=== PATIENT | male | born 1955 | race Caucasian/White ===

== ENCOUNTER 2017-01-13 19:30 | Outpatient (CLI) | payer MEDICARE | END 2017-01-13 19:31 | disposition home or self-care (01) | LOC: SLEEPLAB 19:30 | PROVIDERS: ATTEND Internal Medicine Critical Care Medicine | DX: G47.33 Obstructive sleep apnea (adult) (pediatric) (principal); E66.9 Obesity, unspecified | CPT/HCPCS: 95811 ==

== ENCOUNTER 2017-02-25 19:30 | Outpatient (CLI) | payer MEDICARE | END 2017-02-25 19:31 | disposition home or self-care (01) | LOC: SLEEPLAB 19:30 | PROVIDERS: ATTEND Internal Medicine Critical Care Medicine | DX: G47.33 Obstructive sleep apnea (adult) (pediatric) (principal); R53.83 Other fatigue; R06.81 Apnea, not elsewhere classified; R09.89 Other specified symptoms and signs involving the circulatory and respiratory systems; E66.9 Obesity, unspecified | CPT/HCPCS: 95811 ==

== ENCOUNTER 2017-10-19 17:57 | Inpatient (IN) | payer MEDICARE ==
[2017-10-19] MEDS ORDERED: Ondansetron ODT 4 MG TAB ONE (18:57)
[2017-10-19] MEDS ORDERED: HYDROcodone/Acetaminophen 5/325 mg Tablet PO PRN ×2 (23:10)
[2017-10-19] MEDS ORDERED: Acetaminophen 325 MG TAB PO PRN (23:10)
[2017-10-19] MEDS ORDERED: Ondansetron HCl/PF 4 MG/2 ML Vial IVP PRN (23:10)
[2017-10-19] MEDS ORDERED: Ondansetron ODT 4 MG TAB SL PRN (23:10)
[2017-10-19 23:20] VITALS: BMI 42.3
[2017-10-20] MEDS ORDERED: Insulin Regular 300 UNITS/3 ML VIAL SC PRN ×2 (04:16)
[2017-10-20] MEDS ORDERED: Dextrose 50% Abboject 50 ML SYRINGE SLOW IVP PRN (04:16)
[2017-10-20] MEDS ORDERED: Dextrose 5% in Water 1,000 ML IV PRN (04:16)
[2017-10-20] MEDS ORDERED: traMADol HCl 50 MG TAB PO PRN (04:18)
[2017-10-20] MEDS ORDERED: Lorazepam 1 MG TAB PO PRN (04:18)
[2017-10-20] MEDS ORDERED: Calcium Carbonate 500 MG ChewTAB PO PRN (04:18)
[2017-10-20] MEDS ORDERED: Nitroglycerin 0.4 MG TAB (25 Tab Bottle) SL PRN (04:18)
[2017-10-20] MEDS ORDERED: Benzonatate 100 MG CAP PO PRN (04:18)
[2017-10-20] MEDS ORDERED: Ondansetron HCl/PF 4 MG/2 ML Vial IVP PRN (04:18)
[2017-10-20] MEDS ORDERED: hydrALAZINE 20 MG/ML VIAL SLOW IVP PRN (04:18)
[2017-10-20] MEDS ORDERED: Senokot 8.6 MG TAB PO PRN (04:18)
[2017-10-20] MEDS ORDERED: Diabetic Tussin 200 MG/10 ML UDCUP PO PRN (04:18)
[2017-10-20] MEDS ORDERED: cloNIDine 0.1 MG TAB PO PRN (04:18)
[2017-10-20] MEDS ORDERED: Acetaminophen 325 MG TAB PO PRN (04:18)
[2017-10-20] MEDS ORDERED: Loratadine 10 MG TAB PO PRN (04:18)
[2017-10-20] MEDS ORDERED: Mag-Al 1200 mg/1200 mg/30 ML UDCUP PO PRN (04:18)
--- NOTE | 2017-10-20 05:54 | HP ---
DATE OF ADMISSION: 10/20/2017 PRIMARY CARE PHYSICIAN: Dr. Lul Martínez. PRIMARY COMMERCIAL OR INSTITUTIONAL CLEANER: Dr. Mai. PRIMARY MACHINE ADJUSTER LEADER: Dr. Tomas. CHIEF COMPLAINT: Shortness of breath. HISTORY OF PRESENTING ILLNESS: Mr. Pedro is a very pleasant 61-year-old male with past medical hist ory of diabetes mellitus, type 2; dyslipidemia; hypertension; and chronic kidney disease as well as c ongestive heart failure; who presented to the emergency room with the above-mentioned complaint. His tory is mainly obtained by the patient himself and electronic medical records have been reviewed. The patient had a last echocardiogram done in 11/2014, which showed ejection fraction of 50% to 55% a nd diastolic dysfunction. Mr. Pedro reports that he has been compliant with his medication of torsemide, but lately he has bee n having worsening shortness of breath for 5 days as well as worsening pitting pedal edema. He is ve ry worried about his kidney failure with the diuresis and he states that he is trying very hard that he does not end up on dialysis. Dr. Tomas is monitoring his kidney functions closely. He initially p resented to the [facility] where he was found to have elevated BNP and chest x-ray c onsistent with moderate congestive heart failure. He was given 60 mg of Lasix in the ER and was poon sferred to our facility for further evaluation. He is now being admitted for same. PAST MEDICAL HISTORY: 1. Chronic diastolic congestive heart failure. 2. History of chronic kidney disease, stage 4. 3. Coronary artery disease, status post CABG in the past. 4. Morbid obesity. 5. Hypertension. 6. Dyslipidemia. 7. Iron deficiency anemia. 8. Cardiorenal syndrome. PAST SURGICAL HISTORY: 1. Coronary artery bypass graft in 05/2012. 2. Laser lithotripsy as well as cystoscopy [place] [address] Ibarra. 3. Tonsillectomy. ALLERGIES: METFORMIN. SOCIAL HISTORY: and lives at home with his . He is a former smoker. Denies any current use of tobacco, alcohol, or drugs. FAMILY HISTORY: Mother with coronary artery disease. HOME MEDICATIONS: As follows: Allopurinol 100 mg p.o. b.i.d., amlodipine 10 mg daily, Coreg 6.25 mg p.o. b.i.d., atorvastatin 40 mg daily, aspirin 325 mg daily, famotidine 20 mg daily, cholecalciferol 50 mcg daily, insulin aspart 40 units t.i.d. and insulin glargine 75 b.i.d., torsemide 100 mg daily. REVIEW OF SYSTEMS: The following complete review of systems was negative, unless otherwise mentioned in the HPI or below: Constitutional: Weight loss or gain, ability to conduct usual activities. Sk in: Rash, itching. Eyes: Double vision, pain. ENT/Mouth: Nose bleeding, neck stiffness, pain, te nderness. Cardiovascular: Palpitations, dyspnea on exertion, orthopnea. Respiratory: Shortness of breath, wheezing, cough, hemoptysis, fever or night sweats. Gastrointestinal: Poor appetite, abdom inal pain, heartburn, nausea, vomiting, constipation, or diarrhea. Genitourinary: Urgency, frequenc y, dysuria, nocturia. Musculoskeletal: Pain, swelling. Neurologic/Psychiatric: Anxiety, depressio n. Allergy/Immunologic: Skin rash, bleeding tendency. A 12-point review of systems is done. It is negative except for those mentioned in the history and physical. LABORATORY DATA AND IMAGING: CBC shows hemoglobin of 8.3, which is slightly lower than his baseline of around 10, platelet count of 119. Serum chemistry shows sodium of 135, bicarbonate of 17, BUN 93, creatinine 3.96 with estimated GFR of 15. Blood sugar is 207, alkaline phosphatase is elevated at 3 37. BNP of 448. Chest x-ray by my review shows pulmonary vascular congestion. A 12-lead EKG showed some sinus bradyc ardia at 55 beats per minute with some nonspecific T changes in lead III. PHYSICAL EXAMINATION: VITAL SIGNS: Most recent vital signs, temperature 98.3, pulse of 62, respirations 20, saturating 96% on 3 liters nasal cannula, blood pressure 145/66. GENERAL: No acute distress. He gets easily winded with conversation; however. He is awake, alert, oriented x3. HEENT: Mucous membrane is moist and pink. No oropharyngeal exudate or erythema. Head is normocepha lic, atraumatic. Pupils are equal, reactive to light and accommodation. Extraocular movement intact . NECK: Supple without any lymphadenopathy, JVD or bruit. CHEST: Evaluation showed bibasilar crackles without any significant wheezes. CARDIOVASCULAR: Rate and rhythm is regular without any murmur, rubs or gallops. ABDOMEN: Obese, soft, nontender, nondistended with positive bowel sounds. EXTREMITIES: Showed +1 pitting edema bilaterally. NEUROLOGIC: Nonfocal. SKIN: Free of any rashes or bruises. Feel warm and dry to touch. PSYCHIATRIC: Normal affect. IMPRESSION AND PLAN: 1. Acute on chronic diastolic congestive heart failure exacerbation. The patient will be gently diu resed with Lasix b.i.d. with close monitoring of his renal function. We will obtain a new echocardio gram and consult his mica plate layer hand, Dr. Mai in the morning. He will be on a fluid restricted diet and we will monitor strict I's and O's and daily weights. We will also refer him to Heart Failure Cl in prior to discharge. 2. Acute on chronic kidney disease, likely secondary to cardiorenal syndrome. We will consult Nephr ology and monitor renal function closely. Avoid any nephrotoxic medication. 3. History of coronary artery disease, status post coronary artery bypass graft. At this time, we w ill continue his aspirin, statin, and beta blockers. He is not on any SAEED inhibitor at this time due to renal insufficiency. 4. Chronic iron deficiency anemia. The patient has had workup done as an outpatient. 5. Chronic thrombocytopenia. 6. Dyslipidemia. We will continue statin. 7. Hypertension, currently controlled. Resume home medications as above. 8. Code status: FULL CODE. Discussed with the patient. 9. Add deep venous thrombosis and gastrointestinal prophylaxis. 10. Add p.r.n. medication orders. DISPOSITION: Mr. Pedro is currently being admitted to the hospital with acute congestive heart fail ure. Estimated length of stay at this time is at least 2-3 midnights. Further management will depen d upon his clinical course.
[2017-10-20] MEDS ORDERED: Furosemide 40 MG/4 ML VIAL SLOW IVP SCH (06:00)
[2017-10-20] MEDS: Atorvastatin Calcium 40 MG TAB PO SCH (08:24)
[2017-10-20] MEDS: Insulin Glargine 75 UNITS in Pre-Filled Syringe 1 EACH SC SCH ×2 (08:24→20:43)
[2017-10-20] MEDS: Carvedilol 6.25 MG TAB PO SCH ×2 (08:24→16:03)
[2017-10-20] MEDS: Allopurinol 100 MG TAB PO SCH ×2 (08:24→20:42)
[2017-10-20] MEDS: Aspirin 325 mg Enteric Coated Tablet PO SCH (08:24)
[2017-10-20] MEDS: Famotidine 20 MG TAB PO SCH (08:24)
[2017-10-20] MEDS: HumaLOG 300 UNITS/3 ML VIAL SC SCH ×3 (08:25→20:43)
[2017-10-20] MEDS: Heparin 5,000 UNITS/ML VIAL SC SCH ×2 (08:25→20:43)
[2017-10-20] MEDS ORDERED: Amlodipine 10 MG TAB PO SCH (09:00)
[2017-10-20] MEDS ORDERED: Non-Formulary Item 1 EACH (Insulin Glargine,Hum.Rec.Anlog [Lantus Solostar] 75 UNIT) SQ SCH (09:00)
--- NOTE | 2017-10-20 09:48 | CON ---
DATE OF CONSULTATION: 10/20/2017 REASON FOR CONSULTATION: Congestive heart failure, coronary artery disease, previous bypass surgery. Mr. Pedro is a 61-year-old gentleman. He has been noticing increasing difficulty breathing and increasing fluid retention for the last 2 weeks. Finally it became so bad that he had trouble breathing even at rest and he has been hospitalized for that. He was seen in the emergency room, given 60 mg of Lasix. He said he has only had a modest output from the furosemide. He has not had chest pain or pressure. PAST MEDICAL HISTORY: 1. History of chronic kidney disease stage 4, very close to dialysis levels. 2. Coronary artery disease, previous bypass surgery. 3. Morbid obesity. 4. Hypertension. 5. Dyslipidemia. 6. History of iron-deficiency anemia. 7. Chronic heart failure initially systolic, but later, the ejection fraction improved, but later a follow up ejection fraction showed improvement in the ejection fraction 50%, but that was in 2014. I do not see any repeat since then. 8. Insulin dependent diabetes. PAST SURGICAL HISTORY: 1. He had bypass surgery in 2012. 2. Tonsillectomy. ALLERGIES: METFORMIN. SOCIAL HISTORY: , lives at home with his , former smoker, No current alcohol or drugs. FAMILY HISTORY: Mother with coronary disease. HOME MEDICATIONS: 1. Allopurinol. 2. Amlodipine 10 mg a day. 3. Coreg. He tells me he was taking 25 mg twice a day. The charts says 6.25. That will need to be checked. 4. Atorvastatin 40 mg daily. 5. Aspirin 325 mg a day. 6. Pepcid. 7. Insulin. REVIEW OF SYSTEMS: CONSTITUTIONAL: Positive for weakness, fatigue, and shortness of breath. VISION: No changes. HEARING: No changes. PULMONARY: Positive for shortness of breath. CARDIAC: No chest pain or pressure. Positive for shortness of breath and swelling of the lower extremities. GASTROINTESTINAL: No nausea, vomiting or diarrhea. SKIN: No rashes. NEUROLOGIC: No unusual unilateral weakness or numbness. PSYCHIATRIC: No unusual depression or anxiety. MUSCULOSKELETAL: No unusual joint pains. PHYSICAL EXAMINATION: GENERAL: This is a very pleasant 61-year-old man who is on oxygen. He says he is comfortable lying in bed up at about a 15 to 20 degree angle. VITAL SIGNS: His blood pressure 151/64, pulse 58 regular. EYES: Sclerae nonicteric. Mouth mucous membranes moist. NECK: Supple, no lymphadenopathy. LUNGS: Clear, no wheezing, rales or rhonchi. CARDIOVASCULAR: Distant, but no murmur, rub or gallop. ABDOMEN: Obese, nontender, no hepatosplenomegaly. EXTREMITIES: Warm, dry, no clubbing or cyanosis. There is moderate to severe edema. PERTINENT LABORATORY AND X-RAY FINDINGS: His hemoglobin is 8.3. The creatinine 3.96. Most recent cholesterol level 105. LDL is 57. EKG showed sinus bradycardia, heart rate of 55. No acute changes. Also, Reviewing the other medicine list, it is also listed as hydralazine 100 mg tablet 10 mg twice a day, that is not a consistent record of the medicine, we will need to clarify that with him. Yet another medicine list indicates that he was taking torsemide 100 mg a day, that seems to be accurate. ASSESSMENT: 1. Previous coronary artery bypass grafting. 2. Previously systolic congestive heart failure. Subsequently, had diastolic heart failure. This will need to be clarified, may has systolic CHF now. He has cardiac enlargement on his x-ray. 3. History of hypertension. 4. Stage 4 renal failure, very close to dialysis levels. 5. History of iron deficiency anemia, currently anemic. 6. Diabetes. 7. Morbid obesity, BMI is 42. PLAN: 1. Continue intravenous diuretics. He did not respond much to the 40 mg of Lasix IV increased to 60. 2. Reduce carvedilol dose to allow greater perfusion. 3. Stop amlodipine. 4. We will likely need to resume hydralazine based on blood pressure response. Would like him to have a relatively high blood pressure for now at least in the next day or 2 to try to perfuse his kidneys to diurese. 5. Echocardiogram; may need a defibrillator implantation. 6. I will be glad to follow with you. 7. Also check iron levels. MTDD
--- NOTE | 2017-10-20 10:51 | CON ---
DATE OF CONSULTATION: 10/20/2017 REFERRING PHYSICIAN: Dr. Hurley REASON FOR CONSULTATION: Acute kidney injury. REASON FOR ADMISSION: Shortness of breath and congestive heart failure. HISTORY OF PRESENT ILLNESS: A 61-year-old male with a history of congestive heart failure, chronic kidney disease stage 4, coronary artery disease, hypertension, came to the hospital with shortness of breath and has been treated for CHF exacerbation. He was found to have elevated creatinine. His creatinine was found to be 3.96. His baseline creatinine runs around 2.8-3.4. The patient states that the last few days he started having a lot of swelling and shortness of breath and has been fighting with it. He denies any changes in his diet pattern. He was also evaluated by Cardiology. No history of any nausea, vomiting, no fevers, chills, no chest pain. PAST MEDICAL HISTORY: Positive for congestive heart failure, chronic kidney disease, coronary artery disease, morbid obesity, hypertension, hyperlipidemia. PAST SURGICAL HISTORY: Coronary artery bypass graft, laser lithotripsy, tonsillectomy. HOME MEDICATIONS: Allopurinol, amlodipine, Coreg, atorvastatin, aspirin, famotidine, folic acid, insulin, torsemide. ALLERGIES: METFORMIN. SOCIAL HISTORY: Former smoker. No alcohol or drug abuse. FAMILY HISTORY: No history of kidney disease. REVIEW OF SYSTEMS: The following complete review of systems was negative, unless otherwise mentioned in the HPI or below: Constitutional: Weight loss or gain, ability to conduct usual activities. Skin: Rash, itching. Eyes: Double vision, pain. ENT/Mouth: Nose bleeding, neck stiffness, pain, tenderness. Cardiovascular: Palpitations, dyspnea on exertion, orthopnea. Respiratory: Shortness of breath, wheezing, cough, hemoptysis, fever or night sweats. Gastrointestinal: Poor appetite, abdominal pain, heartburn, nausea, vomiting, constipation, or diarrhea. Genitourinary: Urgency, frequency, dysuria, nocturia. Musculoskeletal: Pain, swelling. Neurologic/Psychiatric: Anxiety, depression. Allergy/Immunologic: Skin rash, bleeding tendency. PHYSICAL EXAMINATION: GENERAL: This is an obese male in no apparent distress. VITAL SIGNS: Temperature 98.4, pulse 50, respiratory 16, blood pressure 151/64. HEENT: Atraumatic, normocephalic. Oral mucosa is moist. NECK: Supple, no masses. HEART: S1, S2 heard. Rate and rhythm regular. RESPIRATORY: Clear. ABDOMEN: Soft. MUSCULOSKELETAL: 1+ edema. DERMATOLOGIC: No skin rash. NEUROLOGIC: Alert, awake. PSYCHIATRIC: Normal mood and affect. LABORATORY: Hemoglobin is 8.3. Potassium is 4.4, BUN 93, creatinine is 3.9. ASSESSMENT AND PLAN: 1. Acute kidney injury on chronic kidney stage 4, most likely cardiorenal syndrome. Agree with IV Lasix and advised to limit salt and fluid intake. 2. Cardiorenal syndrome. Follow with Cardiology as above. Okay with Lasix. 3. Edema. 4. Hypertension. 5. Anemia. We will check iron studies and will give ____ as tolerated. 6. Mild hypoalbuminemia. Plan is to continue Lasix. Agree with increased dose to 60 b.i.d. and close monitoring. Limit salt and fluid intake. We will follow. Thank you for the consult. BERTD
[2017-10-20] MEDS: Furosemide 40 MG/4 ML VIAL SLOW IVP SCH (14:09)
--- NOTE | 2017-10-20 15:22 | PDOC.PN ---
- Subjective Encounter Start Date: 10/20/17 Encounter Start Time: 15:20 Subjective: f/u for acute/chronic diast CHF with EF 50%. Receiving Lasix IV and -: overall sx improved. - Objective MAR Reviewed: Yes Vital Signs & Weight: Vital Signs (12 hours) Temp Pulse Pulse Resp BP BP Pulse Ox 10/20/17 11:49 98.5 F 60 18 132/64 92 L 10/20/17 10:40 60 150/67 H 10/20/17 08:24 58 L 10/20/17 07:53 98.4 F 58 L 16 96 10/20/17 07:21 98.4 F 58 L 16 151/64 H 96 10/20/17 04:00 98.3 F 62 20 145/66 H 96 Pulse Ox 10/20/17 11:49 10/20/17 10:40 97 10/20/17 08:24 10/20/17 07:53 10/20/17 07:21 10/20/17 04:00 Weight Weight 312 lb 6.4 oz I&O: 10/19/17 10/20/17 10/21/17 06:59 06:59 06:59 Intake Total 200 Output Total 425 Balance -225 Additional Labs: Accuchecks 10/20/17 10/20/17 11:02 05:35 POC Glucose 91 221 H Reviewed all labs Radiology Reviewed by me: Yes (2D echo -EF 50-55%, mod-severe TR/MR, LAE, elevated RA press) EKG Reviewed by me: Yes (Tele - SR) Phys Exam - Physical Examination Constitutional: NAD HEENT: PERRLA, sclera anicteric, oral pharynx no lesions Neck: no nodes, no JVD, supple, full ROM diminished in bases, few basilar crackles II/ RANI in RUSB Cardiovascular: RRR, no rub, gallop Gastrointestinal: soft, non-tender, no distention, positive bowel sounds Musculoskeletal: pulses present, edema present Neurological: normal sensation, moves all 4 limbs Psychiatric: normal affect, A&O x 3 Skin: no rash, normal turgor, cap refill <2 seconds Dx/Plan (1) Diastolic CHF, acute on chronic Code(s): I50.33 - ACUTE ON CHRONIC DIASTOLIC (CONGESTIVE) HEART FAILURE Status : Acute Comment: EF 50-55%, continue Lasix 60mg IV BID, daily weights, I/O's (2) TATIANA (acute kidney injury) Code(s): N17.9 - ACUTE KIDNEY FAILURE, UNSPECIFIED Status: Acute Comment: Likely due to cardiorenal syndrome, monitor renal fxn closely in context of increased diuretic exposure, appreciate Nephrology assistance (3) Anemia, chronic renal failure Code(s): N18.9 - CHRONIC KIDNEY DISEASE, UNSPECIFIED; D63.1 - ANEMIA IN CHRONIC KIDNEY DISEASE Status: Acute (4) CAD (coronary artery disease) Code(s): I25.10 - ATHSCL HEART DISEASE OF [place] CORONARY ARTERY W/O ANG PCTRS Status: Chronic Comment: Continue ASA, Lipitor, Coreg (5) CKD (chronic kidney disease) stage 4, GFR 15-29 ml/min Code(s): N18.4 - CHRONIC KIDNEY DISEASE, STAGE 4 (SEVERE) Status: Chronic Comment: See above (6) HTN (hypertension) Code(s): I10 - ESSENTIAL (PRIMARY) HYPERTENSION Status: Chronic Qualifiers: Hypertension type: essential hypertension Qualified Code(s): I10 - Essential (primary) hypertension Comment: Continue home BP regimen, serial BP monitoring, Amlodipine d/c'd (7) Diabetes mellitus, type II, insulin dependent Code(s): E11.9 - TYPE 2 DIABETES MELLITUS WITHOUT COMPLICATIONS; Z79.4 - PRISON (CURRENT) USE OF INSULIN Status: Chronic Comment: ISS, continue Lantus 75u sc BID, ADA - Plan plan discussed w/ family, out of bed/ambulate Stable overall -: Continue Lasix 60mg IV BID -: Fluid restrict 1.8L/24h -: Strict I/O's -: AM lab: BMP, CBC, Ferritin, Iron * .
[2017-10-21] MEDS: Furosemide 40 MG/4 ML VIAL SLOW IVP SCH ×2 (05:25→13:22)
[2017-10-21] MEDS: Bisacodyl 5 MG TAB PO PRN (05:32)
[2017-10-21 05:49] LABS: #Eosinphils 0.2 thou/uL (0.0-0.7); #Lymphocytes 0.6 thou/uL (1.20-3.40); #Monocytes 0.3 thou/uL (0.11-0.59); #Neutrophils 2.9 thou/uL (1.40-6.50); %Basophils 0.7 % (0.0-1.0); %Eosinophils 4.1 % (0.0-10.0); %Lymphocytes 14.4 % (21.0-51.0); %Neutrophils 72.8 % (42.0-75.0); Mean Corpuscular HGB CONC 33.2 g/dL (32.0-36.0); Mean Corpuscular Hemoglobin 28.7 pg (27.0-31.0); Mean Corpuscular Volume 86.4 fL (78.0-98.0); Mean Platelet Volume 8.1 fL (7.4-10.4); Platelet Count 112 thou/uL (130-400); RBC Distribution Width 15.4 % (11.5-14.5); Red Blood Cell (RBC) Count 2.79 mill/uL (4.70-6.10)
[2017-10-21 05:56] LABS: Iron 19 ug/dL (65-175); Iron Binding Capacity, Total 255 mcg/dL (261-462)
[2017-10-21 06:00] LABS: Anion Gap 16 mmol/L (10-20); BUN (Urea Nitrogen) 106 mg/dL (8.4-25.7); Calc. Creatinine Clearance 34 mL/min (70-130); Carbon Dioxide 20 mmol/L (23-31); Chloride 106 mmol/L (98-107); Estimated GFR-MDRD 14; Glucose 83 mg/dL (80-115); Iron 21 ug/dL (65-175); Sodium 138 mmol/L (136-145)
[2017-10-21] MEDS ORDERED: Carvedilol 6.25 MG TAB PO SCH (08:05)
[2017-10-21] MEDS: Carvedilol 6.25 MG TAB PO SCH (08:10)
[2017-10-21] MEDS ORDERED: Carvedilol 3.125 MG TAB PO SCH (08:15)
[2017-10-21] MEDS ORDERED: Iron Dextran 500 MG in Sodium Chloride 0.9% 250 ML IVPB SCH (08:15)
--- NOTE | 2017-10-21 08:38 | PRG ---
DATE OF SERVICE: 10/21/2017 SUBJECTIVE: Mr. Pedro is feeling okay. No chest pain or pressure. He only had a moderate response to the diuretics. He is not short of breath, but he is feeling very volume overloaded. PHYSICAL EXAMINATION: VITAL SIGNS: Blood pressure is 140/60, pulse 53, sinus. LUNGS: Clear. CARDIAC: Normal S1, normal S2. ABDOMEN: Soft, nontender. EXTREMITIES: Still moderate to severe edema. The echocardiogram showed normal left ventricular function. ASSESSMENT: 1. Congestive heart failure, diastolic, acute on chronic. 2. Stage 4 renal failure with a creatinine of 4.4. Estimated GFR is 14. 3. Anemia, probably mixed anemia of chronic disease with some degree of iron deficiency. 4. Relative bradycardia. PLAN: 1. Reduce carvedilol to 3.125 mg twice a day. 2. Would avoid bradycardia. 3. Amlodipine is on hold. 4. Hydralazine if blood pressure increases.
[2017-10-21] MEDS: Sodium Ferric Gluconate 250 MG, Admixture Fee 1 EACH in Sodium Chloride 0.9% 250 ML 250 ML IVPB SCH ×2 (08:53→20:48)
[2017-10-21] MEDS: Allopurinol 100 MG TAB PO SCH ×2 (08:53→20:47)
[2017-10-21] MEDS: HumaLOG 300 UNITS/3 ML VIAL SC SCH ×3 (08:54→20:48)
[2017-10-21] MEDS: Atorvastatin Calcium 40 MG TAB PO SCH (08:54)
[2017-10-21] MEDS: Insulin Glargine 75 UNITS in Pre-Filled Syringe 1 EACH SC SCH ×2 (08:54→20:47)
[2017-10-21] MEDS: Aspirin 325 mg Enteric Coated Tablet PO SCH (08:54)
[2017-10-21] MEDS: Heparin 5,000 UNITS/ML VIAL SC SCH ×2 (08:54→20:47)
[2017-10-21] MEDS: Famotidine 20 MG TAB PO SCH (08:54)
[2017-10-21] MEDS: Carvedilol 3.125 MG TAB PO SCH (16:24)
--- NOTE | 2017-10-21 16:40 | PDOC.PN ---
- Subjective Encounter Start Date: 10/21/17 Encounter Start Time: 16:35 Subjective: f/u for acute/chronic diast CHF on Lasix IV. Weight down 2lbs since -: admit. Feels better overall. - Objective MAR Reviewed: Yes Vital Signs & Weight: Vital Signs (12 hours) Temp Pulse Resp BP Pulse Ox 10/21/17 15:28 98.2 F 55 L 16 133/63 96 10/21/17 11:13 98 F 52 L 16 138/64 93 L 10/21/17 08:00 98.3 F 53 L 18 94 L 10/21/17 07:18 98.3 F 53 L 18 141/61 H 94 L Weight Weight 310 lb I&O: 10/20/17 10/21/17 10/22/17 06:59 06:59 06:59 Intake Total 200 1000 Output Total 425 1755 Balance -225 -640 Result Diagrams: 10/21/17 05:16 10/21/17 05:16 Additional Labs: Accuchecks 10/21/17 10/21/17 10/20/17 10:44 05:30 20:22 POC Glucose 144 H 82 221 H 10/20/17 17:00 POC Glucose 168 H Laboratory Tests 10/03/17 10/19/17 10/19/17 07:48 15:30 15:30 Hgb 8.3 L BUN 87 H 93 H Creatinine 3.92 H 3.96 H Iron TIBC % Saturation Ferritin 10/21/17 10/21/17 10/21/17 05:16 05:16 05:16 Hgb BUN Creatinine Iron 21 L 19 L TIBC 255 L % Saturation 7 L Ferritin 131.69 Radiology Reviewed by me: Yes (2D echo - EF 50-55%) EKG Reviewed by me: Yes (Tele - SR) Phys Exam - Physical Examination Constitutional: NAD HEENT: PERRLA, sclera anicteric, oral pharynx no lesions Neck: no nodes, no JVD, supple, full ROM diminished in bases II/ RANI RUSB S1, S2 Cardiovascular: RRR, no rub, gallop obese Gastrointestinal: soft, non-tender, no distention, positive bowel sounds Musculoskeletal: pulses present, edema present Neurological: normal sensation, moves all 4 limbs Psychiatric: normal affect, A&O x 3 Skin: no rash, normal turgor, cap refill <2 seconds Dx/Plan (1) Diastolic CHF, acute on chronic Code(s): I50.33 - ACUTE ON CHRONIC DIASTOLIC (CONGESTIVE) HEART FAILURE Status : Acute Comment: EF 50-55%, continue Lasix 40mg IV BID, daily weights, I/O's (2) TATIANA (acute kidney injury) Code(s): N17.9 - ACUTE KIDNEY FAILURE, UNSPECIFIED Status: Acute Comment: Likely due to cardiorenal syndrome, monitor renal fxn closely in context of increased diuretic exposure, appreciate Nephrology assistance, worsening fxn likely iatrogenic, decrease Lasix, modify chronic medications, limit contrast exposure (3) Anemia, chronic renal failure Code(s): N18.9 - CHRONIC KIDNEY DISEASE, UNSPECIFIED; D63.1 - ANEMIA IN CHRONIC KIDNEY DISEASE Status: Chronic Comment: Stable H/H, no transfusion warranted currently, serial H/H trend (4) CAD (coronary artery disease) Code(s): I25.10 - ATHSCL HEART DISEASE OF [place] CORONARY ARTERY W/O ANG PCTRS Status: Chronic Comment: Continue ASA, Lipitor, Coreg (5) CKD (chronic kidney disease) stage 4, GFR 15-29 ml/min Code(s): N18.4 - CHRONIC KIDNEY DISEASE, STAGE 4 (SEVERE) Status: Chronic Comment: See above (6) HTN (hypertension) Code(s): I10 - ESSENTIAL (PRIMARY) HYPERTENSION Status: Chronic Qualifiers: Hypertension type: essential hypertension Qualified Code(s): I10 - Essential (primary) hypertension Comment: Continue home BP regimen, serial BP monitoring, Amlodipine d/c'd (7) Diabetes mellitus, type II, insulin dependent Code(s): E11.9 - TYPE 2 DIABETES MELLITUS WITHOUT COMPLICATIONS; 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
--- NOTE | 2017-10-21 18:52 | PRG ---
DATE OF SERVICE: 10/21/2017 SUBJECTIVE: Patient was seen and examined at bedside and overnight events noted. Patient denies any shortness of breath or chest pain or palpitation. No history of nausea or vomiting or diarrhea or f ever or chills or cramps. OBJECTIVE: GENERAL: This is an obese male in no acute distress VITAL SIGNS: Temperature 98.2, pulse 55, respiratory rate 16, blood pressure 133/63. HEENT: Atraumatic, normocephalic. Oral mucosa is moist NECK: Supple CARDIOVASCULAR: S1, S2 heard. Rate and rhythm regular. RESPIRATORY: Clear to auscultation. GASTROINTESTINAL: Abdomen is soft. MUSCULOSKELETAL: No tenderness, no edema. DERMATOLOGIC: No skin rash. NEUROLOGIC: Alert, awake, and oriented x3. No focal neurologic deficits. Moving all the extremitie s. PSYCHIATRIC: Mood and affect normal. LABORATORY DATA: Potassium 4, BUN is 106, creatinine is 4.4. ASSESSMENT AND PLAN: 1. Acute kidney injury on chronic kidney disease, stage IV with worsening creatinine, most likely fr om cardiorenal syndrome. Plan discussed with Cardiology, Dr. Mai. Plan is to continue on Lasix. 2. Hypertension. Blood pressure medication will be adjusted. 3. Edema. 4. Cardiorenal syndrome. 5. Anemia. 6. We will continue on diuretics. Monitor renal function. Continue usual dialysis. We will follow .
[2017-10-21] MEDS ORDERED: Sodium Chloride 0.9% 10 ML ONE (20:09)
[2017-10-22] MEDS: Furosemide 40 MG/4 ML VIAL SLOW IVP SCH ×2 (05:32→14:11)
[2017-10-22 06:04] LABS: Anion Gap 12 mmol/L (10-20); BUN (Urea Nitrogen) 101 mg/dL (8.4-25.7); Calc. Creatinine Clearance 36 mL/min (70-130); Calcium 9.2 mg/dL (7.8-10.44); Carbon Dioxide 23 mmol/L (23-31); Chloride 107 mmol/L (98-107); Estimated GFR-MDRD 15; Glucose 71 mg/dL (80-115); Potassium 3.9 mmol/L (3.5-5.1); Sodium 138 mmol/L (136-145)
[2017-10-22] MEDS: Atorvastatin Calcium 40 MG TAB PO SCH (08:09)
[2017-10-22] MEDS: Heparin 5,000 UNITS/ML VIAL SC SCH ×2 (08:09→20:46)
[2017-10-22] MEDS: Allopurinol 100 MG TAB PO SCH ×2 (08:10→20:45)
[2017-10-22] MEDS: Carvedilol 3.125 MG TAB PO SCH ×2 (08:10→16:35)
[2017-10-22] MEDS: Aspirin 325 mg Enteric Coated Tablet PO SCH (08:10)
[2017-10-22] MEDS: Famotidine 20 MG TAB PO SCH (08:10)
[2017-10-22] MEDS: Insulin Glargine 75 UNITS in Pre-Filled Syringe 1 EACH SC SCH ×2 (08:10→20:47)
[2017-10-22] MEDS: HumaLOG 300 UNITS/3 ML VIAL SC SCH ×3 (08:10→20:46)
--- NOTE | 2017-10-22 13:09 | PRG ---
DATE OF SERVICE: 10/22/2017 SUBJECTIVE: Patient was seen and examined at bedside and overnight events noted. Patient denies any shortness of breath or chest pain or palpitation. No history of nausea or vomiting or diarrhea or f ever or chills or cramps. OBJECTIVE: GENERAL: This is an obese male in no apparent distress. VITAL SIGNS: Temperature 98.3, pulse 57, respirations 16, blood pressure 155/68. HEENT: Atraumatic, normocephalic. Oral mucosa is moist NECK: Supple CARDIOVASCULAR: S1, S2 heard. Rate and rhythm regular. RESPIRATORY: Clear to auscultation. GASTROINTESTINAL: Abdomen is soft. MUSCULOSKELETAL: No tenderness, no edema. DERMATOLOGIC: No skin rash. NEUROLOGIC: Alert, awake, and oriented x3. No focal neurologic deficits. Moving all the extremitie s. PSYCHIATRIC: Mood and affect normal. LABORATORY DATA: Potassium is 3.9, BUN is 101, creatinine is 4.1. ASSESSMENT AND PLAN: 1. Acute kidney injury on chronic kidney stage IV with stable creatinine. 2. Hypertension. 3. Edema. 4. Cardiorenal syndrome. 5. Anemia. 6. Continue on diuretics, monitor renal function. Renal function is stable today. We will follow.
[2017-10-22] MEDS: Bisacodyl 5 MG TAB PO PRN (17:20)
--- NOTE | 2017-10-22 20:00 | PDOC.PN ---
- Subjective Encounter Start Date: 10/22/17 Encounter Start Time: 17:00 Subjective: f/u for TATIANA/CKD stabilizing in the 4 range, tx with Lasix BID -: Weight loss 6lb's since admit. - Objective MAR Reviewed: Yes Vital Signs & Weight: Vital Signs (12 hours) Temp Pulse Resp BP Pulse Ox 10/22/17 19:38 98.1 F 59 L 20 138/79 96 10/22/17 16:00 98.2 F 60 18 160/70 H 92 L 10/22/17 12:00 97.9 F 63 18 172/75 H 92 L Weight Weight 306 lb I&O: 10/21/17 10/22/17 10/23/17 06:59 06:59 06:59 Intake Total 1000 1674 1000 Output Total 1754 2014 1059 [facility] -755 -341 -60 Result Diagrams: 10/21/17 05:16 10/22/17 05:33 Additional Labs: Accuchecks 10/22/17 10/22/17 10/21/17 16:49 05:21 20:30 POC Glucose 158 H 82 187 H Laboratory Tests 10/03/17 10/19/17 10/19/17 07:48 15:30 15:30 Hgb 8.3 L BUN 87 H 93 H Creatinine 3.92 H 3.96 H Iron TIBC % Saturation Ferritin 10/21/17 10/21/17 10/21/17 05:16 05:16 05:16 Hgb BUN Creatinine 4.40 H Iron 21 L 19 L TIBC 255 L % Saturation 7 L Ferritin 131.69 EKG Reviewed by me: Yes (Tele -SR) Phys Exam - Physical Examination Constitutional: NAD HEENT: PERRLA, sclera anicteric, oral pharynx no lesions Neck: no nodes, no JVD, supple, full ROM Respiratory: no wheezing, no rales, no rhonchi, clear to auscultation bilateral S1, S2 Cardiovascular: RRR, no significant murmur, no rub, gallop obese Gastrointestinal: soft, non-tender, no distention, positive bowel sounds Musculoskeletal: pulses present, edema present Neurological: normal sensation, moves all 4 limbs Psychiatric: normal affect, A&O x 3 Skin: normal turgor, cap refill <2 seconds Dx/Plan (1) Diastolic CHF, acute on chronic Code(s): I50.33 - ACUTE ON CHRONIC DIASTOLIC (CONGESTIVE) HEART FAILURE Status : Acute Comment: EF 50-55%, continue Lasix 40mg IV BID, daily weights, I/O's, improved (2) TATIANA (acute kidney injury) Code(s): N17.9 - ACUTE KIDNEY FAILURE, UNSPECIFIED Status: Acute Comment: Likely due to cardiorenal syndrome, monitor renal fxn closely in context of increased diuretic exposure, appreciate Nephrology assistance, worsening fxn likely iatrogenic, decrease Lasix, modify chronic medications, limit contrast exposure (3) Anemia, chronic renal failure Code(s): N18.9 - CHRONIC KIDNEY DISEASE, UNSPECIFIED; D63.1 - ANEMIA IN CHRONIC KIDNEY DISEASE Status: Chronic Comment: Stable H/H, no transfusion warranted currently, serial H/H trend (4) CAD (coronary artery disease) Code(s): I25.10 - ATHSCL HEART DISEASE OF [place] CORONARY ARTERY W/O ANG PCTRS Status: Chronic Comment: Continue ASA, Lipitor, Coreg (5) CKD (chronic kidney disease) stage 4, GFR 15-29 ml/min Code(s): N18.4 - CHRONIC KIDNEY DISEASE, STAGE 4 (SEVERE) Status: Chronic Comment: See above (6) HTN (hypertension) Code(s): I10 - ESSENTIAL (PRIMARY) HYPERTENSION Status: Chronic Qualifiers: Hypertension type: essential hypertension Qualified Code(s): I10 - Essential (primary) hypertension Comment: Continue home BP regimen, serial BP monitoring, Amlodipine d/c'd (7) Diabetes mellitus, type II, insulin dependent Code(s): E11.9 - TYPE 2 DIABETES MELLITUS WITHOUT COMPLICATIONS; Z79.4 - STRATEGIC CONSULTANT (CURRENT) USE OF INSULIN Status: Chronic Comment: ISS, continue Lantus 75u sc BID, ADA - Plan PT/OT, nursing home social worker, out of bed/ambulate, DVT proph w/heparin Stable overall -: Continue Lasix 40mg IV BID -: OOB/ambulate -: Fluid restrict 1.8L/24h -: AM lab: BMP * .
[2017-10-22] MEDS ORDERED: Sodium Chloride 0.9% 10 ML ONE (20:19)
[2017-10-22] MEDS: hydrALAZINE 25 MG TAB PO SCH (20:45)
[2017-10-23] MEDS ORDERED: Sodium Chloride 0.9% 10 ML ONE ×2 (05:20→20:45)
[2017-10-23] MEDS: Furosemide 40 MG/4 ML VIAL SLOW IVP SCH ×2 (06:07→15:14)
[2017-10-23 06:28] LABS: Anion Gap 11 mmol/L (10-20); BUN (Urea Nitrogen) 96 mg/dL (8.4-25.7); Calc. Creatinine Clearance 38 mL/min (70-130); Calcium 9.3 mg/dL (7.8-10.44); Carbon Dioxide 26 mmol/L (23-31); Chloride 108 mmol/L (98-107); Estimated GFR-MDRD 16; Glucose 155 mg/dL (80-115); Potassium 4.2 mmol/L (3.5-5.1); Sodium 141 mmol/L (136-145)
[2017-10-23] MEDS: Atorvastatin Calcium 40 MG TAB PO SCH (09:06)
[2017-10-23] MEDS: Allopurinol 100 MG TAB PO SCH ×2 (09:06→21:45)
[2017-10-23] MEDS: Carvedilol 3.125 MG TAB PO SCH ×2 (09:06→17:42)
[2017-10-23] MEDS: hydrALAZINE 25 MG TAB PO SCH ×2 (09:06→21:45)
[2017-10-23] MEDS: Famotidine 20 MG TAB PO SCH (09:06)
[2017-10-23] MEDS: Insulin Glargine 75 UNITS in Pre-Filled Syringe 1 EACH SC SCH ×2 (09:09→21:45)
[2017-10-23] MEDS: Aspirin 325 mg Enteric Coated Tablet PO SCH (09:09)
[2017-10-23] MEDS: HumaLOG 300 UNITS/3 ML VIAL SC SCH ×4 (09:10→21:45)
[2017-10-23] MEDS: Heparin 5,000 UNITS/ML VIAL SC SCH ×2 (12:20→21:46)
--- NOTE | 2017-10-23 13:15 | PRG ---
DATE OF SERVICE: 10/23/2017 SUBJECTIVE: Patient was seen and examined at bedside and overnight events noted. Patient denies any shortness of breath or chest pain or palpitation. No history of nausea or vomiting or diarrhea or fever or chills or cramps. OBJECTIVE: GENERAL: This is an obese male in no apparent distress. VITAL SIGNS: Temperature 97.9, pulse , blood pressure 141/65. HEENT: Atraumatic, normocephalic. Oral mucosa is moist. NECK: Supple. CARDIOVASCULAR: S1 and S2 heard. Rate and rhythm regular. RESPIRATORY: Clear to auscultation. GASTROINTESTINAL: Abdomen is soft. MUSCULOSKELETAL: No tenderness. No edema. DERMATOLOGIC: No skin rash. NEUROLOGIC: Alert and awake and oriented x3. No focal neurologic deficits. Moving all the extremit ies. PSYCHIATRIC: Mood and affect normal. LABORATORY DATA: Potassium is 4.2, BUN is 96, creatinine 3.9. ASSESSMENT AND PLAN: 1. Acute kidney injury on chronic kidney disease, stage 4, with improvement in creatinine, on Lasix. Advised to limit salt and fluid intake. 2. Cardiorenal syndrome as above. 3. Hypertension 4. Edema. We will limit fluid intake. We will continue to monitor renal function. Continue on diuretics. Follow with Cardiology for cardiac medications.
--- NOTE | 2017-10-23 18:44 | PDOC.PN ---
- Subjective Encounter Start Date: 10/23/17 Encounter Start Time: 18:00 Subjective: f/u for TATIANA/CKD with LE edema. Improving with IV Lasix, 6lb weight -: loss since admit. - Objective Vital Signs & Weight: Vital Signs (12 hours) Temp Pulse Resp BP BP Pulse Ox 10/23/17 15:19 98.3 F 64 17 156/71 H 92 L 10/23/17 12:00 97.6 F 62 19 155/70 H 94 L 10/23/17 09:06 57 L 141/65 H 10/23/17 08:00 97.9 F 62 18 141/65 H 93 L Weight Weight 306 lb 1.6 oz I&O: 10/22/17 10/23/17 10/24/17 06:59 06:59 06:59 Intake Total 1674 1144 1200 Output Total 2014 1909 2600 [facility] [place] -341 [phone] -1400 Result Diagrams: 10/21/17 05:16 10/23/17 05:28 Additional Labs: Accuchecks 10/23/17 10/23/17 10/23/17 16:59 10:55 05:43 POC Glucose 134 H 183 H 155 H 10/22/17 20:41 POC Glucose 180 H Laboratory Tests 10/03/17 10/19/17 10/19/17 07:48 15:30 15:30 Hgb 8.3 L BUN 87 H 93 H Creatinine 3.92 H 3.96 H Iron TIBC % Saturation Ferritin 10/21/17 10/21/17 10/21/17 05:16 05:16 05:16 Hgb BUN Creatinine 4.40 H Iron 21 L 19 L TIBC 255 L % Saturation 7 L Ferritin 131.69 10/22/17 05:33 Hgb BUN Creatinine 4.13 H Iron TIBC % Saturation Ferritin EKG Reviewed by me: Yes (Tele - SR) Phys Exam - Physical Examination Constitutional: NAD HEENT: PERRLA, sclera anicteric, oral pharynx no lesions Neck: no nodes, no JVD, supple, full ROM Respiratory: no wheezing, no rales, no rhonchi, clear to auscultation bilateral S1, S2 Cardiovascular: RRR, no significant murmur, no rub, gallop obese Gastrointestinal: soft, non-tender, no distention, positive bowel sounds decreased edema of LE's Musculoskeletal: pulses present, edema present Neurological: normal sensation, moves all 4 limbs Psychiatric: normal affect, A&O x 3 Skin: no rash, normal turgor, cap refill <2 seconds Dx/Plan (1) Diastolic CHF, acute on chronic Code(s): I50.33 - ACUTE ON CHRONIC DIASTOLIC (CONGESTIVE) HEART FAILURE Status : Acute Comment: EF 50-55%, continue Lasix 40mg IV BID, daily weights, I/O's, improved (2) TATIANA (acute kidney injury) Code(s): N17.9 - ACUTE KIDNEY FAILURE, UNSPECIFIED Status: Acute Comment: Likely due to cardiorenal syndrome, monitor renal fxn closely in context of increased diuretic exposure, appreciate Nephrology assistance, worsening fxn likely iatrogenic, decrease Lasix, modify chronic medications, limit contrast exposure, improving slowly (3) Anemia, chronic renal failure Code(s): N18.9 - CHRONIC KIDNEY DISEASE, UNSPECIFIED; D63.1 - ANEMIA IN CHRONIC KIDNEY DISEASE Status: Chronic Comment: Stable H/H, no transfusion warranted currently, serial H/H trend (4) CAD (coronary artery disease) Code(s): I25.10 - ATHSCL HEART DISEASE OF [place] CORONARY ARTERY W/O ANG PCTRS Status: Chronic Comment: Continue ASA, Lipitor, Coreg (5) CKD (chronic kidney disease) stage 4, GFR 15-29 ml/min Code(s): N18.4 - CHRONIC KIDNEY DISEASE, STAGE 4 (SEVERE) Status: Chronic Comment: See above (6) HTN (hypertension) Code(s): I10 - ESSENTIAL (PRIMARY) HYPERTENSION Status: Chronic Qualifiers: Hypertension type: essential hypertension Qualified Code(s): I10 - Essential (primary) hypertension Comment: Continue home BP regimen, serial BP monitoring, Amlodipine d/c'd (7) Diabetes mellitus, type II, insulin dependent Code(s): E11.9 - TYPE 2 DIABETES MELLITUS WITHOUT COMPLICATIONS; Z79.4 - DIAL SCREW ASSEMBLER (CURRENT) USE OF INSULIN Status: Chronic Comment: ISS, continue Lantus 75u sc BID, ADA - Plan out of bed/ambulate Stable overall -: Continue Lasix 40mg IV BID another 24h then convert to po -: OOB/ambulate -: Continue ASA/Lipitor/Coreg -: AM lab: BMP * Likely home in 24h
[2017-10-24] MEDS ORDERED: Sodium Chloride 0.9% 10 ML ONE (05:30)
[2017-10-24 06:11] LABS: Anion Gap 14 mmol/L (10-20); BUN (Urea Nitrogen) 93 mg/dL (8.4-25.7); Calc. Creatinine Clearance 38 mL/min (70-130); Calcium 8.9 mg/dL (7.8-10.44); Carbon Dioxide 21 mmol/L (23-31); Chloride 109 mmol/L (98-107); Estimated GFR-MDRD 16; Glucose 139 mg/dL (80-115); Potassium 4.4 mmol/L (3.5-5.1); Sodium 140 mmol/L (136-145)
[2017-10-24] MEDS: Furosemide 40 MG/4 ML VIAL SLOW IVP SCH ×2 (06:15→15:07)
[2017-10-24] MEDS: Bisacodyl 5 MG TAB PO PRN (06:21)
[2017-10-24] MEDS: Aspirin 325 mg Enteric Coated Tablet PO SCH (08:29)
[2017-10-24] MEDS: hydrALAZINE 25 MG TAB PO SCH ×3 (08:29→20:44)
[2017-10-24] MEDS: Carvedilol 3.125 MG TAB PO SCH ×2 (08:29→17:48)
[2017-10-24] MEDS: Atorvastatin Calcium 40 MG TAB PO SCH (08:30)
[2017-10-24] MEDS: HumaLOG 300 UNITS/3 ML VIAL SC SCH ×3 (08:30→20:45)
[2017-10-24] MEDS: Famotidine 20 MG TAB PO SCH (08:30)
[2017-10-24] MEDS: Allopurinol 100 MG TAB PO SCH ×2 (08:30→20:44)
[2017-10-24] MEDS: Insulin Glargine 75 UNITS in Pre-Filled Syringe 1 EACH SC SCH ×2 (08:33→20:45)
--- NOTE | 2017-10-24 09:28 | PRG ---
DATE OF SERVICE: 10/24/2017 SUBJECTIVE: Mr. Pedro is feeling better. He is not short of breath, no chest pain, no complaints. PHYSICAL EXAMINATION: VITAL SIGNS: Blood pressure is high 173/73, pulse 60, it is regular. LUNGS: Clear. CARDIAC: Normal S1, normal S2. ABDOMEN: Soft, nontender. EXTREMITIES: Still moderate to severe edema. ASSESSMENT: 1. Congestive heart failure, diastolic, still volume overloaded. 2. Renal failure, fortunately creatinine stabilized with 3.9. PLAN: 1. Increase diuretics today. 2. Increase hydralazine. PLAN: He will go home tomorrow, likely to give him one more day to diurese, had a good diuresis yest cielo.
[2017-10-24] MEDS: Heparin 5,000 UNITS/ML VIAL SC SCH ×2 (10:35→20:44)
--- NOTE | 2017-10-24 12:32 | PRG ---
DATE OF SERVICE: 10/24/2017 SUBJECTIVE: This is a 61-year-old gentleman being seen for acute kidney injury. The patient denies any nausea, vomiting, or chest pain. PHYSICAL EXAMINATION: GENERAL: Patient is awake and alert. VITAL SIGNS: Afebrile, pulse 60, breathing 16, and blood pressure 142/73. GENERAL APPEARANCE AND MENTAL STATUS: Fair. HEAD/NECK: Normocephalic. Atraumatic. EYES: EOMI. No deformity. EARS: Clear. No ulcers. NOSE: Intact. No lesions. MOUTH: Clear. No discharge. THROAT: Clear. No exudate. LUNGS: Clear. No crackles. CARDIAC: S1, S2. No rub. ABDOMEN: Benign. BS+. GENITALIA/RECTUM: Ayala absent. BACK/EXTREMITIES: Edema 0+ Ulcer- NEUROLOGICAL: Alert and motor intact. SKIN: Rash- Bruise- LOWER EXTREMITIES: 4+ edema. LABORATORY DATA: Hemoglobin 8, creatinine 3.9. ASSESSMENT AND RECOMMENDATIONS: 1. Acute kidney injury with chronic kidney disease, stage 3. Creatinine is increasing. Patient has progressive chronic kidney disease. 2. Hypertension, stable. 3. BUN is rising, indicates uremia. 4. Congestive heart failure. We will give a dose of metolazone to reduce edema. No urgent indicati on for dialysis. Above findings were discussed with relation.
[2017-10-24] MEDS ORDERED: Metolazone 2.5 MG TAB PO SCH (13:00)
[2017-10-24] MEDS ORDERED: Furosemide 40 MG/4 ML VIAL SLOW IVP SCH (18:00)
--- NOTE | 2017-10-24 21:14 | PDOC.PN ---
- Subjective Encounter Start Date: 10/24/17 Encounter Start Time: 10:05 Subjective: f/u for TATIANA/CKD with IV Lasix for Diastolic CHF. Feels ok overall with -: some residual LE edema. - Objective MAR Reviewed: Yes Vital Signs & Weight: Vital Signs (12 hours) Temp Pulse Resp BP BP Pulse Ox 10/24/17 20:44 64 138/63 10/24/17 15:13 98.1 F 62 18 134/65 93 L 10/24/17 15:11 58 L 134/65 10/24/17 12:00 98.2 F 58 L 17 152/78 H 94 L Weight Weight 302 lb 8 oz I&O: 10/23/17 10/24/17 10/25/17 06:59 06:59 06:59 Intake Total 1144 1494 720 Output Total 4695 4523 9166 [facility]766 -2481 -1030 Result Diagrams: 10/21/17 05:16 10/24/17 05:18 Additional Labs: Accuchecks 10/24/17 10/24/17 10/24/17 20:52 16:35 11:03 POC Glucose 237 H 189 H 170 H 10/24/17 10/23/17 05:09 20:55 POC Glucose 157 H 164 H Laboratory Tests 10/03/17 10/19/17 10/19/17 07:48 15:30 15:30 Hgb 8.3 L BUN 87 H 93 H Creatinine 3.92 H 3.96 H Iron TIBC % Saturation Ferritin 10/21/17 10/21/17 10/21/17 05:16 05:16 05:16 Hgb BUN Creatinine 4.40 H Iron 21 L 19 L TIBC 255 L % Saturation 7 L Ferritin 131.69 10/22/17 10/23/17 05:33 05:28 Hgb BUN Creatinine 4.13 H 3.91 H Iron TIBC % Saturation Ferritin EKG Reviewed by me: Yes (Tele - SR) Phys Exam - Physical Examination Constitutional: NAD HEENT: PERRLA, sclera anicteric, oral pharynx no lesions Neck: no nodes, no JVD, supple, full ROM Respiratory: no wheezing, no rales, no rhonchi, clear to auscultation bilateral S1, S2 Cardiovascular: RRR, no significant murmur, no rub, gallop Gastrointestinal: soft, non-tender, no distention, positive bowel sounds Musculoskeletal: pulses present, edema present Neurological: non-focal, normal sensation, moves all 4 limbs Psychiatric: normal affect, A&O x 3 Skin: no rash, normal turgor, cap refill <2 seconds Dx/Plan (1) Diastolic CHF, acute on chronic Code(s): I50.33 - ACUTE ON CHRONIC DIASTOLIC (CONGESTIVE) HEART FAILURE Status : Acute Comment: EF 50-55%, continue Lasix 40mg IV BID, daily weights, I/O's, improved, likely convert to po Lasix in am (2) TAT[place]NA (acute kidney injury) Code(s): N17.9 - ACUTE KIDNEY FAILURE, UNSPECIFIED Status: Acute Comment: Likely due to cardiorenal syndrome, monitor renal fxn closely in context of increased diuretic exposure, appreciate Nephrology assistance, worsening fxn likely iatrogenic, decrease Lasix, modify chronic medications, limit contrast exposure, improving slowly (3) Anemia, chronic renal failure Code(s): N18.9 - CHRONIC KIDNEY DISEASE, UNSPECIFIED; D63.1 - ANEMIA IN CHRONIC KIDNEY DISEASE Status: Chronic Comment: Stable H/H, no transfusion warranted currently, serial H/H trend (4) CAD (coronary artery disease) Code(s): I25.10 - ATHSCL HEART DISEASE OF [place] CORONARY ARTERY W/O ANG PCTRS Status: Chronic Comment: Continue ASA, Lipitor, Coreg (5) CKD (chronic kidney disease) stage 4, GFR 15-29 ml/min Code(s): N18.4 - CHRONIC KIDNEY DISEASE, STAGE 4 (SEVERE) Status: Chronic Comment: See above (6) HTN (hypertension) Code(s): I10 - ESSENTIAL (PRIMARY) HYPERTENSION Status: Chronic Qualifiers: Hypertension type: essential hypertension Qualified Code(s): I10 - Essential (primary) hypertension Comment: Continue home BP regimen, serial BP monitoring, Amlodipine d/c'd (7) Diabetes mellitus, type II, insulin dependent Code(s): E11.9 - TYPE 2 DIABETES MELLITUS WITHOUT COMPLICATIONS; Z79.4 - HALF-WAY (CURRENT) USE OF INSULIN Status: Chronic Comment: ISS, continue Lantus 75u sc BID, ADA - Plan PT/OT, social media strategist, out of bed/ambulate Stable overall -: OOB/ambulate -: Continue Lasix IV another 24h then convert to po -: Continue Lantus 75u sc BID, ISS -: AM lab: BMP * Likely home in am
[2017-10-25 04:22] VITALS: TEMP 98.2
[2017-10-25] MEDS: Furosemide 40 MG/4 ML VIAL SLOW IVP SCH (06:22)
[2017-10-25 06:31] LABS: Anion Gap 14 mmol/L (10-20); BUN (Urea Nitrogen) 88 mg/dL (8.4-25.7); Calc. Creatinine Clearance 38 mL/min (70-130); Calcium 9.3 mg/dL (7.8-10.44); Carbon Dioxide 24 mmol/L (23-31); Chloride 107 mmol/L (98-107); Estimated GFR-MDRD 16; Glucose 170 mg/dL (80-115); Potassium 3.8 mmol/L (3.5-5.1); Sodium 141 mmol/L (136-145)
[2017-10-25] MEDS: Famotidine 20 MG TAB PO SCH (08:32)
[2017-10-25] MEDS: Carvedilol 3.125 MG TAB PO SCH (08:33)
[2017-10-25] MEDS: hydrALAZINE 25 MG TAB PO SCH (08:33)
[2017-10-25] MEDS: HumaLOG 300 UNITS/3 ML VIAL SC SCH (08:33)
[2017-10-25] MEDS: Aspirin 325 mg Enteric Coated Tablet PO SCH (08:33)
[2017-10-25] MEDS: Allopurinol 100 MG TAB PO SCH (08:33)
[2017-10-25] MEDS: Atorvastatin Calcium 40 MG TAB PO SCH (08:33)
[2017-10-25] MEDS: Insulin Glargine 75 UNITS in Pre-Filled Syringe 1 EACH SC SCH (08:34)
[2017-10-25 08:51] VITALS: BP 174/72
[2017-10-25] MEDS ORDERED: Metolazone 5 MG TAB PO SCH (09:15)
[2017-10-25] MEDS: Heparin 5,000 UNITS/ML VIAL SC SCH (09:34)
--- NOTE | 2017-10-25 10:39 | PRG ---
DATE OF SERVICE: 10/25/2017 SUBJECTIVE: This is a 61-year-old gentleman being seen for acute kidney injury. The patient denies any nausea, vomiting or chest pain. PHYSICAL EXAMINATION: GENERAL APPEARANCE: The patient is awake and alert. VITAL SIGNS: Afebrile, pulse 60, breathing 16, blood pressure 161/70. HEAD/NECK: Normocephalic. Atraumatic. EYES: EOMI. No deformity. EARS: Clear. No ulcers. NOSE: Intact. No lesions. MOUTH: Clear. No discharge. THROAT: Clear. No exudate. LUNGS: Clear. No crackles. CARDIAC: S1, S2. No rub. ABDOMEN: Benign. BS+. GENITALIA/RECTUM: Ayala absent. BACK/EXTREMITIES: Edema 4+ Ulcer- NEUROLOGICAL: Alert and motor intact. SKIN: Rash- Bruise- LYMPHATICS: Edema- Ulcer- LABORATORY DATA: Show hemoglobin 8, creatinine 3.79. ASSESSMENT AND RECOMMENDATIONS: 1. Acute kidney injury with chronic kidney disease, stage IV, stable. 2. Hypertension, stable. 3. Anemia. We will recheck hemoglobin. No indication for anemia. Follow hemoglobin 4. Hypertension, stable. 5. Medications based on GFR are appropriate. 6. Congestive heart failure.Increase Torsemide to 100 q day MTDD
[2017-10-25 11:03] LABS: Hemoglobin 8.2 g/dL (14.0-18.0)
[2017-10-25 11:26] LABS: Iron 37 ug/dL (65-175); Iron Binding Capacity, Total 260 mcg/dL (261-462)
[2017-10-25] MEDS ORDERED: Potassium Chloride 20 MEQ TAB PO SCH (12:00)
--- NOTE | 2017-10-25 13:50 | DIS ---
DATE OF ADMISSION: 10/20/2017 DATE OF DISCHARGE: 10/25/2017 DISCHARGE DIAGNOSES: 1. Acute on chronic diastolic congestive heart failure with ejection fraction of 50%-55%, stable. 2. Acute kidney injury on chronic kidney disease, stage 4, improved. 3. Anemia secondary to chronic kidney disease, stable. 4. Coronary artery disease, chronic and stable. 5. Hypertension, stable. 6. Diabetes mellitus, type 2, insulin requiring, labile. CONSULTATIONS: Dr. Mai with Cardiology service. Dr. Tomas with Nephrology service. PERTINENT LABORATORY AND X-RAY FINDINGS: Creatinine ranged between 3.79-4.40. Estimated GFR ranged between 14-16. Serum iron ranged between 19-21, TIBC 255, percent saturation 7, ferritin 132. CBC s howed a hemoglobin ranged between 8.0-8.2, MCV 86. A 2D transthoracic echocardiogram dated 8 showed ejection fraction of 50%-55%. Oyhrtqbn-uq-[id number] left atrial enlargement. Ykcjkaug-zv-dupb re mitral regurgitation. Zkvrfpew-xu-hukefp tricuspid regurgitation. HOSPITAL COURSE: Patient was admitted to the telemetry unit after initial presentation for worsening shortness of breath, increased lower extremity edema in the context of known diastolic heart failure . The patient was treated with IV Lasix throughout the hospital course with approximate 16-pound flaco ght loss during the hospital stay. The patient had overall excellent diuresis; however, the patient was monitored closely due to chronic kidney disease, stage 4, which had worsened at the time of prese ntation. The patient remained on diuretic therapy and was monitored by the Nephrology Service with r ecommendations to continue torsemide 100 mg daily, in addition to Zaroxolyn 5 mg 3 times per week on discharge. The patient was ambulatory during the hospital course, tolerated regular oral intake. Th e patient was discontinued on Norvasc due to increased lower extremity edema and started on hydralazi ne 25 mg t.i.d. I have examined the patient at the time of discharge and discussed followup instruct ions. The patient verbalizes understanding and in agreement and overall remains clinically stable. The patient was not prescribed SAEED inhibitors or ARBs due to chronic kidney disease, stage 4. The pa tient ready for discharge on 10/25/2017. DISCHARGE MEDICATIONS: 1. Allopurinol 100 mg p.o. b.i.d. 2. Enteric-coated aspirin 325 mg p.o. daily. 3. Lipitor 40 mg p.o. daily. 4. Coreg 6.25 mg p.o. b.i.d. 5. Vitamin D3 50 mcg p.o. daily. 6. Pepcid 20 mg p.o. daily. 7. NovoLog FlexPen 40 units subcutaneously t.i.d. 8. Glargine insulin 75 units subcutaneously b.i.d. 9. Torsemide 100 mg p.o. daily. 10. Hydralazine 25 mg p.o. t.i.d. 11. Zaroxolyn 5 mg p.o., Tuesday, Tuesday, and Tuesday. FOLLOWUP: The patient will follow up with Dr. Lul Martínez on 10/31/2017 at 1:30 p.m. The patient will follow up with Dr. Hill Mai on 11/07/2017 at 9:00 a.m. Patient will follow up with Dr. Kumar morse on 10/28/2017. CONDITION ON DISCHARGE: Fair. ACTIVITY: Ad carrillo. DIET: Heart healthy and ADA. CODE STATUS: FULL. DISPOSITION: Home, 10/25/2017. Total time in preparing and coordinating discharge, 35 minutes.
== END 2017-10-25 12:36 | disposition home or self-care (01) | DRG 291 ==
LOC: ERS 17:57 → 2NO 22:50 → UNDOADMIN 22:50 → 2NO 10-20 05:01
PROVIDERS: ADMIT Family Medicine; ATTEND Family Medicine
DX: I13.0 Hypertensive heart and chronic kidney disease with heart failure and stage 1 through stage 4 chronic kidney disease, or unspecified chronic kidney disease (principal); I50.33 Acute on chronic diastolic (congestive) heart failure; N18.4 Chronic kidney disease, stage 4 (severe); N17.9 Acute kidney failure, unspecified; D63.1 Anemia in chronic kidney disease; I25.10 Atherosclerotic heart disease of native coronary artery without angina pectoris; E11.22 Type 2 diabetes mellitus with diabetic chronic kidney disease; Z79.4 Long term (current) use of insulin; Z87.891 Personal history of nicotine dependence
CPT/HCPCS: 36415; 36416; 80048; 82728; 83540; 83550; 85014; 85018; 85025; 93306; 93798; A4216; G8978-GP-CJ; G8979-GP-CJ; G8980-GP-CJ; G8987-GO-CI; G8988-GO-CI; G8989-GO-CI; J1644; J1940; J2405; J2916; J7050; Q0162

== ENCOUNTER 2019-04-12 10:53 | Inpatient (IN) | payer MEDICARE ==
[2019-04-12 11:43] LABS: #Eosinphils 0.6 thou/uL (0.0-0.7); #Lymphocytes 1.1 thou/uL (1.20-3.40); #Monocytes 0.6 thou/uL (0.11-0.59); #Neutrophils 5.8 thou/uL (1.40-6.50); %Basophils 0.5 % (0.0-1.0); %Eosinophils 7.4 % (0.0-10.0); %Lymphocytes 13.7 % (21.0-51.0); %Monocytes 6.9 % (0.0-10.0); %Neutrophils 71.6 % (42.0-75.0); Hemoglobin 10.7 g/dL (14.0-18.0); Mean Corpuscular HGB CONC 32.1 g/dL (32.0-36.0); Mean Corpuscular Hemoglobin 29.5 pg (27.0-31.0); Mean Platelet Volume 7.3 fL (7.4-10.4); Platelet Count 172 thou/uL (130-400); RBC Distribution Width 14.1 % (11.5-14.5); Red Blood Cell (RBC) Count 3.64 mill/uL (4.70-6.10); White Blood Cell (WBC) Count 8.1 thou/uL (4.8-10.8)
[2019-04-12] MEDS ORDERED: Aspirin Chewable 81 MG TAB ONE (11:46)
[2019-04-12] MEDS ORDERED: Nitroglycerin 2% Ointment 1 INCH/1 GM Packet ONE (11:46)
[2019-04-12 12:03] LABS: ALT (SGPT) 11 U/L (8-55); AST (SGOT) 10 U/L (5-34); Albumin 3.4 g/dL (3.4-4.8); Alkaline Phosphatase 496 U/L (40-110); Anion Gap 13 mmol/L (10-20); BUN (Urea Nitrogen) 56 mg/dL (8.4-25.7); Bilirubin, Total 0.5 mg/dL (0.2-1.2); Calc. Creatinine Clearance 0 mL/min (70-130); Calcium 9.6 mg/dL (7.8-10.44); Carbon Dioxide 26 mmol/L (23-31); Chloride 106 mmol/L (98-107); Estimated GFR-MDRD 10; Glucose 234 mg/dL (80-115); Protein, Total 6.4 g/dL (5.8-8.1); Sodium 140 mmol/L (136-145)
--- NOTE | 2019-04-12 12:05 | RAD ---
Exam: Chest one view HISTORY:Dyspnea Comparison: 12/04/2014, 10/19/2017 FINDINGS: Cardiac silhouette:Enlarged cardiac silhouette. Stable sternotomy wires. Aorta: Unremarkable Pulmonary vessels: Normal Costophrenic angles: Clear LUNGS: Patchy reticulonodular opacities. No consolidation with air bronchograms. Pneumothorax: None Osseous abnormalities: None IMPRESSION: 1. Cardiomegaly. 2. Patchy reticular nodular opacities. Correlate for pulmonary edema.
[2019-04-12] MEDS ORDERED: Metolazone 5 MG TAB PO SCH (13:45)
--- NOTE | 2019-04-12 14:19 | CON ---
DATE OF CONSULTATION: REASON FOR CONSULTATION: Elevated creatinine. HISTORY OF PRESENT ILLNESS: This is a very pleasant 63-year-old gentleman with a history of CKD, stage 5, presented to hospital with increasing swelling in his legs and dyspnea. The patient's creatinine has risen to 5.5. The patient denies any nausea, vomiting, or chest pain. PAST MEDICAL HISTORY: Significant for hypertension; anemia; CKD, stage 5; morbid obesity; coronary artery disease; CABG; lithotripsy; and tonsillectomy. MEDICATIONS: Home medications list, reviewed. Hospital medications list, reviewed. ALLERGIES: REVIEWED. REVIEW OF SYSTEMS: A 15-point review of systems was performed and was negative except for positives noted above. GENERAL: HEAD: NECK: No swelling or lumps. NOSE: No epistaxis or discharge. EYES: No diplopia or pain. RESPIRATORY: CARDIOVASCULAR: GASTROINTESTINAL: /CAFE COOK: MUSCULOSKELETAL: No joint pain. NEUROPSYCHIATIC SYSTEMS: No suicidal ideation. No ideation. SKIN: Denies any rash or ulcer. CONSTITUTIONAL: No fever or chills. PHYSICAL EXAMINATION: GENERAL: The patient is awake and alert. VITAL SIGNS: Afebrile, pulse 85, breathing 16, blood pressure 158/90. GENERAL APPEARANCE AND MENTAL STATUS: Fair. HEAD/NECK: Normocephalic. Atraumatic. EYES: EOMI. No deformity. EARS: Clear. No ulcers. NOSE: Intact. No lesions. MOUTH: Clear. No discharge. THROAT: Clear. No exudate. LUNGS: Clear. No crackles. CARDIAC: S1, S2. No rub. ABDOMEN: Benign. Bowel sounds positive. GENITALIA/RECTUM: Ayala absent. BACK/EXTREMITIES: Lower extremities have 3+ edema. NEUROLOGICAL: Alert and motor intact. SKIN: LYMPHATICS: LABORATORY DATA: Reviewed. ASSESSMENT AND PLAN: 1. Acute kidney injury with chronic kidney disease due to cardiorenal syndrome. Continue diuresis. No urgent indication for dialysis. We will discuss dialysis. 2. Hypertension, stable. 3. Anemia, stable. 4. Medication based on GFR, appropriate. Job ID: [id number]
[2019-04-12] MEDS ORDERED: Ondansetron ODT 4 MG TAB SL PRN (17:19)
[2019-04-12] MEDS ORDERED: Ondansetron PF 4 MG/2 ML Vial IVP PRN (17:19)
[2019-04-12] MEDS ORDERED: Acetaminophen 325 MG TAB PO PRN (17:19)
[2019-04-12 17:32] VITALS: BMI 38.5
[2019-04-12] MEDS ORDERED: Dextrose 50% Abboject 50 ML SYRINGE SLOW IVP PRN (17:56)
[2019-04-12] MEDS ORDERED: Dextrose 5% in Water 1,000 ML IV PRN (17:56)
[2019-04-12] MEDS ORDERED: HumaLOG 300 UNITS/3 ML VIAL SC PRN (17:56)
--- NOTE | 2019-04-12 18:10 | PDOC.HHP ---
Hospitalist HPI - History of Present Illness "My legs are swelling" History of Present Illness: This is a 54-year-old male with past medical history of coronary artery disease status post CABG, hypertension, diabetes mellitus, CHF and chronic kidney disease stage V. He presented to the hospital with worsening lower extremity swelling and shortness of breath over the past few days. The patient has been managed by torsemide 100 mg orally daily and his dose was recently reduced to 50 mg due to worsening kidney function. However, the patient has noted increasing lower extremity swelling since the dose was decreased and try to increase the dose to 100 mg without significant improvement in his lower extremity swelling. This has prompted him to present to the emergency department Hospitalist ROS - Review of Systems All other systems reviewed; all pertinent +/- noted in HPI/Subj Hospitalist History - Past Medical History Other Medical History: Coronary artery disease status post CABG Chronic kidney disease stage IV-V Hypertension Diabetes mellitus dependent on insulin - Past Surgical History Past Surgical History: reports: CABG - Family History Family History: reports: no pertinent history - Social History Smoking Status: Never smoker Alcohol: reports: None Drugs: reports: none - Exam General Appearance: NAD, awake alert Eye: PERRL, anicteric sclera ENT: normocephalic atraumatic Neck: supple, no JVD Heart: RRR, no murmur, no rubs, normal peripheral pulses Respiratory: no wheezes, no rales, normal chest expansion, rhonchi Gastrointestinal: soft, non-tender, non-distended, normal bowel sounds Neurological: cranial nerve grossly intact, no focal deficits Hospitalist Results - Labs Result Diagrams: 04/12/19 11:18 04/12/19 11:18 Lab results: WBC 8.1 thou/uL (4.8-10.8) 04/12/19 11:18 Hgb 10.7 g/dL (14.0-18.0) L 04/12/19 11:18 Hct 33.4 % (42.0-52.0) L 04/12/19 11:18 MCV 92.0 fL (78.0-98.0) 04/12/19 11:18 Plt Count 172 thou/uL (130-400) 04/12/19 11:18 Neutrophils % 71.6 % (42.0-75.0) 04/12/19 11:18 Sodium 140 mmol/L (136-145) 04/12/19 11:18 Potassium 5.0 mmol/L (3.5-5.1) 04/12/19 11:18 Chloride 106 mmol/L (98-107) 04/12/19 11:18 Carbon Dioxide 26 mmol/L (23-31) 04/12/19 11:18 BUN 56 mg/dL (8.4-25.7) H 04/12/19 11:18 Creatinine 5.50 mg/dL (0.7-1.3) H 04/12/19 11:18 Glucose 234 mg/dL (80-115) H 04/12/19 11:18 Calcium 9.6 mg/dL (7.8-10.44) 04/12/19 11:18 Total Bilirubin 0.5 mg/dL (0.2-1.2) 04/12/19 11:18 AST 10 U/L (5-34) 04/12/19 11:18 ALT 11 U/L (8-55) 04/12/19 11:18 Alkaline Phosphatase 496 U/L (40-110) H 04/12/19 11:18 Troponin I 0.020 ng/mL (< 0.028) 04/12/19 15:21 B-Natriuretic Peptide 242.0 pg/mL (0-100) H 04/12/19 11:18 Serum Total Protein 6.4 g/dL (5.8-8.1) 04/12/19 11:18 Albumin 3.4 g/dL (3.4-4.8) 04/12/19 11:18 Hospitalist H&P A/P - Problem (1) Volume overload Code(s): E87.70 - FLUID OVERLOAD, UNSPECIFIED Status: Acute (2) Diastolic CHF, acute on chronic Code(s): I50.33 - ACUTE ON CHRONIC DIASTOLIC (CONGESTIVE) HEART FAILURE Status : Acute (3) S/P CABG (coronary artery bypass graft) Code(s): Z95.1 - PRESENCE OF AORTOCORONARY BYPASS GRAFT Status: Acute (4) CKD (chronic kidney disease) stage 4, GFR 15-29 ml/min Code(s): N18.4 - CHRONIC KIDNEY DISEASE, STAGE 4 (SEVERE) Status: Chronic (5) Diabetes mellitus, type II, insulin dependent Code(s): E11.9 - TYPE 2 DIABETES MELLITUS WITHOUT COMPLICATIONS; Z79.4 - NURSING HOME (CURRENT) USE OF INSULIN Status: Chronic (6) HTN (hypertension) Code(s): I10 - ESSENTIAL (PRIMARY) HYPERTENSION Status: Chronic Qualifiers: Hypertension type: essential hypertension Qualified Code(s): I10 - Essential (primary) hypertension - Plan Plan: The patient's form carpenter Dr. Wadsworth was consulted. The patient received a dose of metolazone in the ER. I will initiate IV Bumex twice daily. Nephrology to discuss dialysis with the patient and his family.
[2019-04-12 18:14] LABS: Troponin I 0.023 ng/mL (< 0.028)
[2019-04-12] MEDS ORDERED: Non-Formulary Item 1 EACH (Insulin Glargine,Hum.Rec.Anlog [Lantus Solostar] 75 UNIT) SQ SCH (21:00)
[2019-04-12] MEDS: hydrALAZINE 25 MG TAB PO SCH (21:58)
[2019-04-12] MEDS: Heparin 5,000 UNITS/ML VIAL SC SCH (21:58)
[2019-04-12] MEDS: Insulin Glargine 75 UNITS in Pre-Filled Syringe 1 EACH SC SCH (21:58)
[2019-04-13 05:04] LABS: #Eosinphils 0.5 thou/uL (0.0-0.7); #Lymphocytes 1.2 thou/uL (1.20-3.40); #Monocytes 0.4 thou/uL (0.11-0.59); #Neutrophils 4.3 thou/uL (1.40-6.50); %Basophils 0.6 % (0.0-1.0); %Eosinophils 7.1 % (0.0-10.0); %Lymphocytes 18.8 % (21.0-51.0); %Monocytes 6.7 % (0.0-10.0); %Neutrophils 66.9 % (42.0-75.0); Hemoglobin 9.6 g/dL (14.0-18.0); Mean Corpuscular HGB CONC 33.3 g/dL (32.0-36.0); Mean Corpuscular Hemoglobin 30.1 pg (27.0-31.0); Mean Corpuscular Volume 90.5 fL (78.0-98.0); Mean Platelet Volume 7.4 fL (7.4-10.4); Platelet Count 142 thou/uL (130-400); RBC Distribution Width 14.1 % (11.5-14.5); Red Blood Cell (RBC) Count 3.18 mill/uL (4.70-6.10); White Blood Cell (WBC) Count 6.5 thou/uL (4.8-10.8)
[2019-04-13 05:29] LABS: Anion Gap 12 mmol/L (10-20); BUN (Urea Nitrogen) 54 mg/dL (8.4-25.7); Calc. Creatinine Clearance 24 mL/min (70-130); Calcium 8.8 mg/dL (7.8-10.44); Carbon Dioxide 23 mmol/L (23-31); Chloride 108 mmol/L (98-107); Estimated GFR-MDRD 10; Glucose 123 mg/dL (80-115); Potassium 4.4 mmol/L (3.5-5.1); Sodium 139 mmol/L (136-145)
[2019-04-13] MEDS ORDERED: Bumetanide 1 MG/4 ML VIAL IVP SCH ×4 (06:00→14:00)
[2019-04-13] MEDS: Carvedilol 6.25 MG TAB PO SCH ×2 (08:55→16:39)
[2019-04-13] MEDS: hydrALAZINE 25 MG TAB PO SCH ×2 (08:55→20:22)
[2019-04-13] MEDS: Famotidine 20 MG TAB PO SCH (08:56)
[2019-04-13] MEDS: Insulin Glargine 75 UNITS in Pre-Filled Syringe 1 EACH SC SCH ×2 (08:56→20:23)
[2019-04-13] MEDS: Heparin 5,000 UNITS/ML VIAL SC SCH ×3 (08:57→20:22)
--- NOTE | 2019-04-13 10:32 | PRG ---
DATE OF SERVICE: 04/13/2019 SUBJECTIVE: A 63-year-old gentleman being seen for stage 5 chronic kidney disease. The patient denied nausea, vomiting, or chest pain. OBJECTIVE: GENERAL: The patient is awake and alert. VITAL SIGNS: Afebrile, pulse 75, breathing 16, and blood pressure 142/67. GENERAL APPEARANCE AND MENTAL STATUS: Fair. HEAD/NECK: Normocephalic. Atraumatic. EYES: EOMI. No deformity. EARS: Clear. No ulcers. NOSE: Intact. No lesions. MOUTH: Clear. No discharge. THROAT: Clear. No exudate. LUNGS: Clear. No crackles. CARDIAC: S1, S2. No rub. ABDOMEN: Benign. Bowel sounds positive. GENITALIA/RECTUM: Ayala absent. BACK/EXTREMITIES: Edema 0+. NEUROLOGICAL: Alert and motor intact. SKIN: LYMPHATICS: LABORATORY DATA: Reviewed. ASSESSMENT AND PLAN: 1. Stage 5 chronic kidney disease, no urgent indication for dialysis. 2. Hypertension, stable. 3. Anemia, stable. 4. We will offer preemptive fistula assessment. 5. We will consult Dr. Ayoub if the patient agrees. Job ID: [id number]
--- NOTE | 2019-04-13 11:10 | PDOC.HOSPP ---
- Subjective Encounter Date: 04/13/19 Subjective: The patient was seen and examined. Negative fluid balance over the past 24 hours was documented. His lower extremity edema is improving. - Objective Vital Signs & Weight: Vital Signs (12 hours) Temp Pulse Resp BP Pulse Ox 04/13/19 08:55 77 04/13/19 08:20 98.1 F 77 20 165/77 H 95 04/13/19 03:28 97.8 F 67 14 142/67 H 95 04/13/19 00:00 67 18 155/57 H 97 Weight Weight 281 lb I&O: 04/12/19 04/13/19 04/14/19 06:59 06:59 06:59 Intake Total 240 Output Total 1200 Balance -960 Result Diagrams: 04/13/19 04:32 04/13/19 04:32 Additional Labs: Accuchecks 04/13/19 04/12/19 06:38 21:27 POC Glucose 133 H 273 H Hospitalist ROS - Medication Medications: Active Medications Generic Name Dose Route Start Last Admin Trade Name Alejandro PRN Reason Stop Dose Admin Carvedilol 6.25 mg 04/13/19 08:00 04/13/19 08:55 Coreg PO 6.25 mg BID-WM ANN Administration Famotidine 20 mg 04/13/19 09:00 04/13/19 08:56 Pepcid PO 20 mg DAILY ANN Administration Heparin Sodium (Porcine) 5,000 units 04/12/19 21:00 04/13/19 08:57 Heparin SC 5,000 units TID ANN Administration Hydralazine HCl 25 mg 04/12/19 21:00 04/13/19 08:55 Apresoline PO 25 mg BID ANN Administration Insulin Glargine 75 units/ 0.75 mls @ 0 mls/hr 04/12/19 21:00 04/13/19 08:56 Miscellaneous Medication SC 0.75 mls BID ANN Administration - Exam General Appearance: NAD, awake alert Eye: PERRL, anicteric sclera ENT: normocephalic atraumatic Neck: supple, no JVD Heart: RRR, no murmur, no gallops, no rubs, normal peripheral pulses Heart - other findings: +1 lower extremity edema Respiratory: CTAB Gastrointestinal: soft, non-tender, non-distended Neurological: cranial nerve grossly intact, no focal deficits Hosp A/P (1) Volume overload Code(s): E87.70 - FLUID OVERLOAD, UNSPECIFIED Status: Acute (2) Diastolic CHF, acute on chronic Code(s): I50.33 - ACUTE ON CHRONIC DIASTOLIC (CONGESTIVE) HEART FAILURE Status : Acute (3) S/P CABG (coronary artery bypass graft) Code(s): Z95.1 - PRESENCE OF AORTOCORONARY BYPASS GRAFT Status: Acute (4) CKD (chronic kidney disease) stage 4, GFR 15-29 ml/min Code(s): N18.4 - CHRONIC KIDNEY DISEASE, STAGE 4 (SEVERE) Status: Chronic (5) Diabetes mellitus, type II, insulin dependent Code(s): E11.9 - TYPE 2 DIABETES MELLITUS WITHOUT COMPLICATIONS; Z79.4 - ASSISTED (CURRENT) USE OF INSULIN Status: Chronic (6) HTN (hypertension) Code(s): I10 - ESSENTIAL (PRIMARY) HYPERTENSION Status: Chronic Qualifiers: Hypertension type: essential hypertension Qualified Code(s): I10 - Essential (primary) hypertension - Plan The patient is diuresing well. Negative fluid balance over the past 24 hours. Creatinine level is stable. Increased Bumex to 2 mg IV twice daily. Encourage ambulation.
--- NOTE | 2019-04-13 14:56 | ULT ---
BILATERAL UPPER EXTREMITY VENOUS DOPPLER ULTRASOUND FOR VEIN MAPPING/DIALYSIS ACCESS: 04/13/19 HISTORY: End-stage renal disease. RIGHT UPPER EXTREMITY BRACHIAL ARTERY: 4.2 mm RADIAL ARTERY: 2.1 mm ULNAR ARTERY: 1.7 mm CEPHALIC VEIN Proximal Arm: 4.8 mm Mid Arm: 5.2 mm Distal Arm: 4.1 mm Antecubital Fossa: 4.6 mm Proximal Forearm: 2.7 mm Mid Forearm: 2.7 mm Distal Forearm: 2.4 mm There is partial compression due to nonocclusive thrombus in the cephalic vein in the right distal ar m. BASILIC VEIN Proximal Arm: 3.7 mm Mid Arm: 4.5 mm Distal Arm: 3.5 mm Antecubital Fossa: 3.3 mm Proximal Forearm: 2.3 mm Mid Forearm: 1.9 mm Distal Forearm: 1.3 mm LEFT UPPER EXTREMITY BRACHIAL ARTERY: 5.3 mm RADIAL ARTERY: 2.2 mm ULNAR ARTERY: 1.7 mm CEPHALIC VEIN Proximal Arm: 3.6 mm Mid Arm: 5 mm Distal Arm: 3.5 mm Antecubital Fossa: 5.6 mm Proximal Forearm: 2.5 mm Mid Forearm: 2.1 mm Distal Forearm: 2.7 mm BASILIC VEIN Proximal Arm: 3 mm Mid Arm: 3.6 mm Distal Arm: 3.4 mm Antecubital Fossa: 3.3 mm Proximal Forearm: 1.9 mm Mid Forearm: 1.2 mm Distal Forearm: 0.9 mm POS: [facility]
[2019-04-13] MEDS: Rosuvastatin 10 MG TAB PO SCH (16:39)
[2019-04-13] MEDS ORDERED: Rosuvastatin 20 MG TAB PO SCH (17:00)
--- NOTE | 2019-04-13 18:24 | CON ---
DATE OF CONSULTATION: HISTORY OF PRESENT ILLNESS: Carlos Pedro is admitted for chronic kidney disease and fluid overload. Dr. Tomas had asked me to see him regarding future dialysis access. We will arrange this as an outpatient. The patient is morbidly obese, 6 feet, 281 pounds, 38 BMI. He has comorbidities of hypertension and diabetes. The patient has been active most of his life in athletics and roping. He has a right antecubital IV in place. He states he is mostly left-handed, but he does many things right-handed and others left handed. He states that he prefers a right arm fistula. Ultrasound vein mapping has been performed, but the report is pending. I have taken down his right antecubital and orders were submitted to avoid IVs above his wrist. ALLERGIES: NONE. SOCIAL HISTORY: Tobacco, none. Alcohol, rarely. MEDICATIONS: 1. Insulin. 2. Vitamin D3. 3. Coreg. 4. Allopurinol. 5. Nifedipine. 6. Famotidine. 7. Aspirin. 8. Hydralazine. 9. Crestor. 10. Torsemide. PAST SURGICAL HISTORY: Cataracts, coronary bypass grafting in 2012. He did not have myocardial infarction. He is followed by Dr. Mai and saw him a few weeks ago. PAST MEDICAL HISTORY: Diabetes mellitus, hypertension, metabolic syndrome, morbid obesity, elevated cholesterol, chronic kidney disease. His GFR is 10. The patient has never had a colonoscopy. PHYSICAL EXAMINATION: VITAL SIGNS: 6 feet, 281 pounds, 38 BMI, 98.1, 77, 155/77. LUNGS: Clear to auscultation. CARDIAC: Regular rate and rhythm. No murmur or gallop. ABDOMEN: Soft. Obese. Small umbilical hernia. EXTREMITIES: Unremarkable. Mild edema of ankles and feet. LABORATORY DATA: White count 6, hemoglobin 9.6, GFR 10. BUN 54, creatinine 5.6, sodium 139. ASSESSMENT AND PLAN: 1. Chronic kidney disease, in need of dialysis soon, right antecubital IV removed, vein mapping performed. We will plan outpatient dialysis access tomorrow, more likely possible left pending vein mapping. Risks of infection, bleeding, reoperation, thrombosis of the fistula, revision of the fistula, failure to immature, thrombosis discussed. He understands risks and benefits, and consents. 2. Metabolic syndrome. 3. Morbid obesity. 4. Hypertension. 5. Diabetes. 6. Elevated cholesterol. 7. Coronary artery disease, stable. 8. Needed colonoscopy. Job ID: [id number]
[2019-04-14 05:04] LABS: Hemoglobin A1c 8.6 % (4.0-6.0)
[2019-04-14] MEDS: Bumetanide 1 MG/4 ML VIAL IVP SCH ×2 (05:05→17:38)
[2019-04-14] MEDS: Heparin 5,000 UNITS/ML VIAL SC SCH ×3 (08:43→20:05)
[2019-04-14] MEDS: Allopurinol 100 MG TAB PO SCH (08:43)
[2019-04-14] MEDS: Insulin Glargine 75 UNITS in Pre-Filled Syringe 1 EACH SC SCH ×2 (08:43→21:33)
[2019-04-14] MEDS: Carvedilol 6.25 MG TAB PO SCH ×2 (08:43→17:21)
[2019-04-14] MEDS: hydrALAZINE 25 MG TAB PO SCH ×3 (08:44→20:05)
[2019-04-14] MEDS: NIFEdipine XL 30 MG TAB PO SCH (08:44)
[2019-04-14] MEDS: Famotidine 20 MG TAB PO SCH (08:44)
[2019-04-14 11:15] LABS: Anion Gap 18 mmol/L (10-20); BUN (Urea Nitrogen) 53 mg/dL (8.4-25.7); Calc. Creatinine Clearance 23 mL/min (70-130); Calcium 9.2 mg/dL (7.8-10.44); Carbon Dioxide 22 mmol/L (23-31); Chloride 105 mmol/L (98-107); Estimated GFR-MDRD 11; Glucose 87 mg/dL (80-115); Potassium 4.5 mmol/L (3.5-5.1); Sodium 140 mmol/L (136-145)
--- NOTE | 2019-04-14 12:06 | PDOC.HOSPP ---
- Subjective Encounter Date: 04/14/19 Encounter Time: 07:45 Subjective: breathing better, is ambulating in room no chest pain, says he is making good urine. - Objective Vital Signs & Weight: Vital Signs (12 hours) Temp Pulse Resp BP Pulse Ox 04/14/19 11:24 98.5 F 65 18 166/74 H 98 04/14/19 08:30 98.7 F 67 18 166/73 H 96 04/14/19 03:17 97.8 F 63 14 157/67 H 95 Weight Weight 256 lb 4 oz I&O: 04/13/19 04/14/19 04/15/19 06:59 06:59 06:59 Intake Total 240 1870 Output Total 1200 5900 Balance -960 4030 Result Diagrams: 04/13/19 04:32 04/14/19 10:40 Additional Labs: Accuchecks 04/14/19 04/14/19 04/13/19 10:47 05:33 20:13 POC Glucose 90 152 H 226 H 04/13/19 04/13/19 16:57 10:37 POC Glucose 185 H 168 H Hospitalist ROS - Medication Medications: Active Medications Generic Name Dose Route Start Last Admin Trade Name Freq PRN Reason Stop Dose Admin Allopurinol 100 mg 04/14/19 09:00 04/14/19 08:43 Zyloprim PO 100 mg DAILY ANN Administration Bumetanide 2 mg 04/14/19 06:00 04/14/19 05:05 Bumex IVP 2 mg 0600,1400 ANN Administration Carvedilol 6.25 mg 04/13/19 08:00 04/14/19 08:43 Coreg PO 6.25 mg BID-WM ANN Administration Famotidine 20 mg 04/13/19 09:00 04/14/19 08:44 Pepcid PO 20 mg DAILY ANN Administration Heparin Sodium (Porcine) 5,000 units 04/12/19 21:00 04/14/19 08:43 Heparin SC 5,000 units TID ANN Administration Hydralazine HCl 25 mg 04/14/19 09:00 04/14/19 08:44 Apresoline PO 25 mg TID ANN Administration Insulin Glargine 75 units/ 0.75 mls @ 0 mls/hr 04/12/19 21:00 04/14/19 08:43 Miscellaneous Medication SC 0.75 mls BID ANN Administration Nifedipine 30 mg 04/14/19 09:00 04/14/19 08:44 Procardia Xl PO 30 mg DAILY ANN Administration Rosuvastatin Calcium 10 mg 04/13/19 17:00 04/13/19 16:39 Crestor PO 10 mg 1700 ANN Administration - Exam General Appearance: awake alert Eye: PERRL, anicteric sclera ENT: no oropharyngeal lesions, moist mucosa Neck: supple, no JVD Heart: RRR, no murmur Respiratory: no wheezes, no rales Gastrointestinal: soft, non-tender, non-distended, normal bowel sounds Extremities: no cyanosis, no edema Neurological: cranial nerve grossly intact, no focal deficits Psychiatric: normal affect, A&O x 3 Hosp A/P (1) Volume overload Code(s): E87.70 - FLUID OVERLOAD, UNSPECIFIED Status: Acute (2) TATIANA (acute kidney injury) Code(s): N17.9 - ACUTE KIDNEY FAILURE, UNSPECIFIED Status: Acute (3) Diastolic CHF, acute on chronic Code(s): I50.33 - ACUTE ON CHRONIC DIASTOLIC (CONGESTIVE) HEART FAILURE Status : Acute (4) CAD (coronary artery disease) Code(s): I25.10 - ATHSCL HEART DISEASE OF [place] CORONARY ARTERY W/O ANG PCTRS Status: Chronic Qualifiers: Coronary Disease-Associated Artery/Lesion type: bypass graft [place] vs. transplanted heart: [place] heart Associated angina: without angina Qualified Code(s): I25.810 - Atherosclerosis of coronary artery bypass graft(s) without angina pectoris (5) CKD (chronic kidney disease) stage 4, GFR 15-29 ml/min Code(s): N18.4 - CHRONIC KIDNEY DISEASE, STAGE 4 (SEVERE) Status: Chronic (6) Diabetes mellitus, type II, insulin dependent Code(s): E11.9 - TYPE 2 DIABETES MELLITUS WITHOUT COMPLICATIONS; Z79.4 - COOPERATIVE EXTENSION AGENT (CURRENT) USE OF INSULIN Status: Chronic (7) HTN (hypertension) Code(s): I10 - ESSENTIAL (PRIMARY) HYPERTENSION Status: Chronic Qualifiers: Hypertension type: essential hypertension Qualified Code(s): I10 - Essential (primary) hypertension (8) Obesity (BMI 30.0-34.9) Code(s): E66.9 - OBESITY, UNSPECIFIED Status: Chronic (9) HLD (hyperlipidemia) Code(s): E78.5 - HYPERLIPIDEMIA, UNSPECIFIED Status: Chronic Qualifiers: Hyperlipidemia type: unspecified Qualified Code(s): E78.5 - Hyperlipidemia , unspecified - Plan is diuresing well, renal function is holding up will get AV fistula on as outpt by continue bumex, coreg, hydralazine and crestor high dose lantus twice daily hemostable dc plan in am if stable. labs per nephrology adv
--- NOTE | 2019-04-14 12:37 | PRG ---
DATE OF SERVICE: 04/14/2019 SUBJECTIVE: A 63-year-old gentleman being seen for acute kidney injury. The patient denied any nausea, vomiting, or chest pain. OBJECTIVE: GENERAL: The patient is awake and alert. VITAL SIGNS: Afebrile, pulse 75, breathing 16, blood pressure was 166/73. GENERAL APPEARANCE AND MENTAL STATUS: Fair. HEAD/NECK: Normocephalic. Atraumatic. EYES: EOMI. No deformity. EARS: Clear. No ulcers. NOSE: Intact. No lesions. MOUTH: Clear. No discharge. THROAT: Clear. No exudate. LUNGS: Clear. No crackles. CARDIAC: S1, S2. No rub. ABDOMEN: Benign. Bowel sounds positive. GENITALIA/RECTUM: Ayala absent. BACK/EXTREMITIES: Edema 0+. NEUROLOGICAL: Alert and motor intact. SKIN: LYMPHATICS: LABORATORY DATA: Labs show creatinine is 5.3. ASSESSMENT AND PLAN: 1. Chronic kidney disease , stage 5, stable. 2. Hypertension, stable. 3. Anemia, stable. 4. Medication based on GFR appropriate. 5. No indication for dialysis. The patient is non-oliguric. Job ID: [id number]
[2019-04-14] MEDS: Rosuvastatin 10 MG TAB PO SCH (17:22)
[2019-04-15 04:30] LABS: #Basophils 0.1 thou/uL (0.0-0.2); #Eosinphils 0.5 thou/uL (0.0-0.7); #Lymphocytes 1.8 thou/uL (1.20-3.40); #Monocytes 0.6 thou/uL (0.11-0.59); #Neutrophils 4.6 thou/uL (1.40-6.50); %Eosinophils 7.3 % (0.0-10.0); %Lymphocytes 23.5 % (21.0-51.0); %Monocytes 7.6 % (0.0-10.0); %Neutrophils 60.5 % (42.0-75.0); Hemoglobin 10.6 g/dL (14.0-18.0); Mean Corpuscular HGB CONC 33.7 g/dL (32.0-36.0); Mean Corpuscular Hemoglobin 30.6 pg (27.0-31.0); Mean Corpuscular Volume 90.7 fL (78.0-98.0); Mean Platelet Volume 7.7 fL (7.4-10.4); Platelet Count 147 thou/uL (130-400); RBC Distribution Width 14.1 % (11.5-14.5); Red Blood Cell (RBC) Count 3.46 mill/uL (4.70-6.10); White Blood Cell (WBC) Count 7.5 thou/uL (4.8-10.8)
[2019-04-15 04:57] LABS: Anion Gap 16 mmol/L (10-20); BUN (Urea Nitrogen) 60 mg/dL (8.4-25.7); Calc. Creatinine Clearance 22 mL/min (70-130); Calcium 9.1 mg/dL (7.8-10.44); Carbon Dioxide 24 mmol/L (23-31); Chloride 104 mmol/L (98-107); Estimated GFR-MDRD 10; Glucose 108 mg/dL (80-115); Sodium 140 mmol/L (136-145)
[2019-04-15] MEDS: Bumetanide 1 MG/4 ML VIAL IVP SCH (06:10)
[2019-04-15] MEDS: Famotidine 20 MG TAB PO SCH (08:18)
[2019-04-15] MEDS: Allopurinol 100 MG TAB PO SCH (08:18)
[2019-04-15] MEDS: hydrALAZINE 25 MG TAB PO SCH (08:18)
[2019-04-15] MEDS: Carvedilol 6.25 MG TAB PO SCH (08:19)
[2019-04-15] MEDS: Heparin 5,000 UNITS/ML VIAL SC SCH (08:19)
[2019-04-15] MEDS: NIFEdipine XL 30 MG TAB PO SCH (08:22)
[2019-04-15] MEDS: Insulin Glargine 75 UNITS in Pre-Filled Syringe 1 EACH SC SCH (08:23)
[2019-04-15 11:14] VITALS: BP 117/72; TEMP 97.8
--- NOTE | 2019-04-15 14:52 | PRG ---
DATE OF SERVICE: 04/15/2019 SUBJECTIVE: A 63-year-old gentleman being seen for acute kidney injury. The patient denied nausea, vomiting, or chest pain. OBJECTIVE: CONSTITUTIONAL: On exam, the patient is awake and alert. VITAL SIGNS: Afebrile, pulse 74, breathing 16, and blood pressure 117/72. GENERAL APPEARANCE AND MENTAL STATUS: Fair. HEAD/NECK: Normocephalic. Atraumatic. EYES: EOMI. No deformity. EARS: Clear. No ulcers. NOSE: Intact. No lesions. MOUTH: Clear. No discharge. THROAT: Clear. No exudate. LUNGS: Clear. No crackles. CARDIAC: S1, S2. No rub. ABDOMEN: Benign. Bowel sounds positive. GENITALIA/RECTUM: Ayala absent. BACK/EXTREMITIES: Edema 0+. NEUROLOGICAL: Alert and motor intact. SKIN: LYMPHATICS: LABORATORY DATA: Reviewed. ASSESSMENT AND PLAN: 1. Stage 5 chronic kidney disease, stable. 2. Hypertension, stable. 3. Anemia, stable. Medication based on GFR appropriate. No indication for dialysis. The patient will follow up. Job ID: [id number]
--- NOTE | 2019-04-15 15:11 | DIS ---
DATE OF ADMISSION: 04/12/2019 DATE OF DISCHARGE: 04/15/2019 DISCHARGE DISPOSITION: Home. PRIMARY DISCHARGE DIAGNOSES: 1. Acute kidney injury on top of chronic kidney disease stage 4/5. 2. Congestive heart failure exacerbation with diastolic dysfunction. SECONDARY DISCHARGE DIAGNOSES: 1. Hypertension. 2. Dyslipidemia. 3. History of coronary artery bypass graft in 2012. 4. Obesity. 5. Anemia. PROCEDURES DONE DURING HOSPITALIZATION: Chest x-ray done on the day of admission showed cardiomegaly with pulmonary vascular congestion. H and H 10 and 31, platelet count 147. Discharge BUN and creatinine are 60 and 5.6. HBA1c 8.6. Troponin x3 negative. BNP 242. INPATIENT CONSULT: Dr. Tomas for Nephrology. Dr. Ayoub for General Surgery. DISCHARGE MEDICATION: 1. Aspirin 81 mg p.o. daily. 2. Coreg 6.25 mg twice daily. 3. Vitamin D3 2000 units daily. 4. Pepcid 20 mg daily. 5. NovoLog FlexPen three times daily with sliding scale Lantus 75 units subcu twice daily. 6. Procardia XL 30 mg daily. 7. Crestor 20 mg daily. 8. Torsemide 100 mg daily. 9. Allopurinol 100 mg daily. 10. Hydralazine 25 mg 3 times daily. ALLERGIES: NO KNOWN DRUG ALLERGIES. DISCHARGE PLAN: The patient to follow up with Dr. Tomas in 1 week. He also needs to follow up with Dr. Ayoub for AV fistula placement on of this month. He needs to follow up with Dr. Martínez his primary care physician in [address] Mai on 07/18/2019 at 11:15 a.m. BRIEF COURSE DURING HOSPITALIZATION: The patient initially got admitted on the with complaints of worsening lower extremity swelling and shortness of breath. The patient has known history of chronic kidney disease stage 4/5. He has been progressively getting worse with his kidney disease. He was volume overloaded and had CHF exacerbation with diastolic dysfunction. He was gently diuresed during his stay here. His renal function has held up. The patient is very close to end-stage renal disease. He has had consultation with Dr. Tomas from nephrology. Dr. Ayoub was also consulted during his stay here and will place AV fistula on the per patient. He has diuresed well during his stay here. He has lost nearly 8 pounds with diuresis. He is hemodynamically stable, ambulating and eating well prior to discharge. The patient is clearly aware of impending end-stage renal disease. He will have followup labs with Dr. Tomas. Please note I have seen and examined the patient on the day of discharge. Job ID: [id number]
== END 2019-04-15 12:31 | disposition home or self-care (01) | DRG 291 ==
LOC: ERS 10:53 → 2NO 15:11
PROVIDERS: ADMIT Internal Medicine; ATTEND Internal Medicine
DX: I13.2 Hypertensive heart and chronic kidney disease with heart failure and with stage 5 chronic kidney disease, or end stage renal disease (principal); I50.33 Acute on chronic diastolic (congestive) heart failure; N17.9 Acute kidney failure, unspecified; N18.5 Chronic kidney disease, stage 5; K21.9 Gastro-esophageal reflux disease without esophagitis; E78.5 Hyperlipidemia, unspecified; E11.22 Type 2 diabetes mellitus with diabetic chronic kidney disease; M10.9 Gout, unspecified; D63.1 Anemia in chronic kidney disease; E66.01 Morbid (severe) obesity due to excess calories; I25.10 Atherosclerotic heart disease of native coronary artery without angina pectoris; E88.81 Metabolic syndrome and other insulin resistance; E78.00 Pure hypercholesterolemia, unspecified; E11.40 Type 2 diabetes mellitus with diabetic neuropathy, unspecified; Z95.1 Presence of aortocoronary bypass graft; Z79.82 Long term (current) use of aspirin; Z79.4 Long term (current) use of insulin; Z79.899 Other long term (current) drug therapy; Z68.38 Body mass index [BMI] 38.0-38.9, adult
CPT/HCPCS: 36415; 36416; 71045; 80048; 80053; 83036; 83880; 84484; 85025; 93005; 93798; 93970; 94760; G0365; J1644; J1815; J3490

== ENCOUNTER 2019-04-23 07:38 | Day surgery (SDC) | payer MEDICARE ==
[2019-04-20 11:49] VITALS: BMI 36.6
[2019-04-23] MEDS ORDERED: Fentanyl 100 MCG/2 ML VIAL ONE ×2 (09:19→13:05)
[2019-04-23] MEDS ORDERED: Insulin Glargine 35 UNITS in Pre-Filled Syringe 1 EACH SC SCH (09:30)
[2019-04-23 09:32] LABS: Anion Gap 19 mmol/L (10-20); BUN (Urea Nitrogen) 92 mg/dL (8.4-25.7); Calc. Creatinine Clearance 20 mL/min (70-130); Calcium 9.8 mg/dL (7.8-10.44); Carbon Dioxide 25 mmol/L (23-31); Chloride 97 mmol/L (98-107); Estimated GFR-MDRD 9; Glucose 233 mg/dL (80-115); Potassium 4.5 mmol/L (3.5-5.1); Sodium 136 mmol/L (136-145)
[2019-04-23] MEDS ORDERED: Bupivacaine HCl 0.5%/Epinephrine 1:200,000/PF 30 ml Vial ONE (10:03)
[2019-04-23] MEDS ORDERED: Heparin 5,000 UNITS/ML VIAL ONE (13:04)
[2019-04-23] MEDS ORDERED: Protamine Sulfate 50 MG/5 ML VIAL ONE (13:04)
[2019-04-23] MEDS ORDERED: Midazolam HCl 2 mg/2 ml Vial ONE (13:05)
[2019-04-23] MEDS ORDERED: Propofol 500 MG/50 ML VIAL ONE (13:05)
--- NOTE | 2019-04-23 14:49 | OP ---
DATE OF PROCEDURE: 04/23/2019 PREOPERATIVE DIAGNOSIS: Chronic kidney disease, not yet started dialysis, left-handed. POSTOPERATIVE DIAGNOSIS: Chronic kidney disease, not yet started dialysis, left-handed. PROCEDURE PERFORMED: Right Shawna fistula, wrist, 4 mm coronary dilator. ANESTHESIA: Regional and TIVA. DESCRIPTION OF PROCEDURE: The patient was taken to the operating room, where under regional anesthesia and TIVA, the right upper extremity was prepared with ChloraPrep and draped in routine fashion. Incision was made in the right wrist longitudinally between the radial artery and cephalic vein, carried down to skin and subcutaneous tissue and both dissected free. The patient was given 6000 units of heparin intravenously. Cephalic vein ligated on the hand side, spatulated, interrogated. Coronary dilators placed from 2 mm to 4 mm coronary dilator without obstruction throughout the length. It was flushed with heparinized saline solution. Radial artery dissected free, arteriosclerotic, but patent and dissected free and clamped proximally and distally. Longitudinal arteriotomy made, elongated sharply and spatulated accordingly and end vein to side proximal artery anastomosis created with continuous suture of 6-0 Prolene, noting a good Doppler signal. Hemostasis gained with 6-0 Prolene. Good hemostasis noted. The patient was given 25 mg of protamine by Anesthesia. Subcutaneous tissue was approximated with 3-0 Monocryl, skin with subdermal 4-0 Monocryl, and [place] glue applied. Job ID: [id number]
== END 2019-04-23 15:30 | disposition home or self-care (01) ==
LOC: SDC 07:38
PROVIDERS: ATTEND Specialist
PROC: 03170ZD Bypass Right Brachial Artery to Upper Arm Vein, Open Approach (ICD-10-PCS; principal; 2019-04-23)
DX: I13.0 Hypertensive heart and chronic kidney disease with heart failure and stage 1 through stage 4 chronic kidney disease, or unspecified chronic kidney disease (principal); E11.22 Type 2 diabetes mellitus with diabetic chronic kidney disease; N18.9 Chronic kidney disease, unspecified; I50.9 Heart failure, unspecified; E78.00 Pure hypercholesterolemia, unspecified; E88.81 Metabolic syndrome and other insulin resistance; E66.01 Morbid (severe) obesity due to excess calories; Z68.38 Body mass index [BMI] 38.0-38.9, adult; Z79.4 Long term (current) use of insulin; Z79.82 Long term (current) use of aspirin; Z79.899 Other long term (current) drug therapy; Z87.891 Personal history of nicotine dependence; Z95.1 Presence of aortocoronary bypass graft
CPT/HCPCS: 36416; 80048; J0670; J0690; J1644; J1815; J2250; J2704; J2720; J3010

== ENCOUNTER 2019-07-10 19:52 | Inpatient (IN) | payer MEDICARE ==
[2019-07-10 20:48] LABS: #Eosinphils 0.3 thou/uL (0.0-0.7); #Lymphocytes 0.5 thou/uL (1.20-3.40); #Monocytes 0.5 thou/uL (0.11-0.59); #Neutrophils 10.2 thou/uL (1.40-6.50); %Basophils 0.1 % (0.0-1.0); %Eosinophils 2.5 % (0.0-10.0); %Lymphocytes 4.6 % (21.0-51.0); %Neutrophils 88.8 % (42.0-75.0); Hemoglobin 10.5 g/dL (14.0-18.0); Mean Corpuscular HGB CONC 31.8 g/dL (32.0-36.0); Mean Corpuscular Hemoglobin 28.4 pg (27.0-31.0); Mean Corpuscular Volume 89.1 fL (78.0-98.0); Mean Platelet Volume 7.7 fL (7.4-10.4); Platelet Count 120 thou/uL (130-400); RBC Distribution Width 13.1 % (11.5-14.5); Red Blood Cell (RBC) Count 3.72 mill/uL (4.70-6.10); White Blood Cell (WBC) Count 11.5 thou/uL (4.8-10.8)
[2019-07-10 21:16] LABS: Bacteria/HPF 4+ HPF (None Seen); Bilirubin Negative (Negative); Blood, Urine Trace (Negative); Clarity Clear (Clear); Glucose, Urine (Dipstick) 300 mg/dL (Negative); Leukocyte 500 Leu/uL (Negative); Nitrite Negative (Negative); Protein, Urine (Dipstick) 300 mg/dL (Neg-Trace); Squamous Epithelial None Seen HPF (0-3); Urobilinogen Normal mg/dL (Less than 2); WBC/HPF Greater than 50 HPF (0-3); Yeast-Budding 1+ HPF (None Seen)
[2019-07-10 21:16] LABS: ALT (SGPT) 10 U/L (8-55); AST (SGOT) 8 U/L (5-34); Albumin 3.6 g/dL (3.4-4.8); Alkaline Phosphatase 421 U/L (40-110); Anion Gap 17 mmol/L (10-20); BUN (Urea Nitrogen) 72 mg/dL (8.4-25.7); Bilirubin, Total 0.7 mg/dL (0.2-1.2); CK (CPK) 15 U/L (30-200); Calc. Creatinine Clearance 0 mL/min (70-130); Calcium 9.8 mg/dL (7.8-10.44); Carbon Dioxide 22 mmol/L (23-31); Chloride 105 mmol/L (98-107); Estimated GFR-MDRD 11; Globulin 2.9 g/dL (2.4-3.5); Glucose 241 mg/dL (80-115); Potassium 4.6 mmol/L (3.5-5.1); Protein, Total 6.5 g/dL (5.8-8.1); Sodium 139 mmol/L (136-145)
--- NOTE | 2019-07-10 21:16 | RAD ---
CHEST ONE VIEW: 07/10/19 INDICATION: History of shortness of breath. COMPARISON: Prior exam dated 04/12/19. FINDINGS: There is stable mild cardiomegaly. There is mild pulmonary vascular congestion. No pleural effusion, air space consolidation, or pneumothorax evident. Chronic osseous changes and midline sternotomy haily nges are similar appearing. IMPRESSION: Mild cardiomegaly and mild pulmonary vascular congestion. POS: [facility]
[2019-07-10] MEDS ORDERED: Morphine 4 MG/ML VIAL ONE (21:56)
[2019-07-10] MEDS ORDERED: cefTRIAXone\\ROCEPHIN 2 GM VIAL ONE (21:56)
[2019-07-10] MEDS ORDERED: Ondansetron ODT 4 MG TAB SL PRN (22:55)
[2019-07-10] MEDS ORDERED: Acetaminophen 325 MG TAB PO PRN (22:55)
[2019-07-10] MEDS ORDERED: Ondansetron PF 4 MG/2 ML Vial IVP PRN ×2 (22:55→23:22)
[2019-07-10 23:21] VITALS: BMI 36.9
[2019-07-10] MEDS ORDERED: Promethazine HCl 12.5 MG in Sodium Chloride 0.9% 50 ML IVPB PRN (23:22)
[2019-07-10] MEDS ORDERED: Morphine 2 MG/ML SYRINGE SLOW IVP PRN (23:22)
[2019-07-10] MEDS ORDERED: hydrALAZINE 20 MG/ML VIAL SLOW IVP PRN (23:22)
[2019-07-10] MEDS ORDERED: cloNIDine 0.1 MG TAB PO PRN (23:22)
[2019-07-10] MEDS ORDERED: Labetalol HCl 100 MG/20 ML VIAL SLOW IVP PRN (23:22)
--- NOTE | 2019-07-10 23:32 | PDOC.HHP ---
Hospitalist HPI - History of Present Illness L flank pain History of Present Illness: Patient is a 63 year old male with PMH DM, CAD, CABG, HLD, HTN, chronic kidney disease who presents to ED for hematuria and L flank pain beginning this morning. He reports the symptoms started suddenly, not really tender more of a colicky throb in the L groin and flank. He has history of stage IV CKD and sees Dr Tomas and has a fistula. He reports ankle swelling more than normal. there is malaise, weakness, but no fevers or chills. He makes urine though nurse reports some pink and red tinged urine with no clots since arriving to hospital. In ED, labs abnormal and concerning for renal failure, urine significant for infectious markers, CT abdomen ordered and prelim read of m stone in L UPJ and air in urinary tract, patient admitted for above findings, nephrology consulted by ED. Patient WBC 11. His glucose elevated 240s, CXR w/ findings concerning for overload. Hospitalist ROS - Review of Systems Constitutional: reports: sweats, weakness, malaise. denies: fever, chills Eyes: denies: vision change, redness ENT: denies: ear pain, mouth pain, mouth swelling Respiratory: denies: cough, dry, shortness of breath, pleuritic pain Cardiovascular: reports: edema. denies: chest pain, palpitations, orthopnea, light headedness Gastrointestinal: reports: abdominal pain. denies: nausea, vomiting, diarrhea, constipation, hematochezia Genitourinary: reports: dysuria, hematuria. denies: frequency, incontinence Musculoskeletal: reports: back pain. denies: neck pain, shoulder pain, arm pain Skin: denies: rash, lesions, kevin, bruising Neurological: denies: weakness, numbness, incoordination, change in speech, confusion, seizures All other systems reviewed; all pertinent +/- noted in HPI/Subj - Medication Medications: reivewed and restarted, see MAR/home med list Hospitalist History - Past Medical History Other Medical History: chronic diastolic CHF CKD stage 4 CAD s/p distant CABG morbid obesity HTN dyslipidemia iron deficiency anemia cardiorenal syndrome - Past Surgical History Past Surgical History: reports: CABG Other Surgical History: cabg cystoscopy, lithotripsy 1999 Dr Zhang - Family History Family History: reports: no pertinent history, cardiac disorder - Social History Smoking Status: Former smoker Alcohol: reports: None Drugs: reports: none - Exam General Appearance: NAD, awake alert Eye: PERRL, anicteric sclera ENT: normocephalic atraumatic, no oropharyngeal lesions, moist mucosa Neck: supple, symmetric, no JVD, no thyromegaly, no lymphadenopathy, no carotid bruit Heart: RRR, no murmur, no gallops, no rubs, normal peripheral pulses Respiratory: CTAB, no wheezes, no rales, no ronchi, normal chest expansion, no tachypnea, normal percussion Gastrointestinal: soft, non-tender, non-distended, normal bowel sounds, no palpable masses, no hepatomegaly, no splenomegaly, no bruit Extremities: no cyanosis, no clubbing, no edema Skin: normal turgor, no lesions, no rashes Neurological: cranial nerve grossly intact, normal sensation to touch, no weakness, no focal deficits, no new deficit Musculoskeletal: normal tone Psychiatric: normal affect Hospitalist Results - Labs Result Diagrams: 07/10/19 20:30 07/10/19 20:30 Lab results: WBC 11.5 thou/uL (4.8-10.8) H 07/10/19 20:30 Hgb 10.5 g/dL (14.0-18.0) L 07/10/19 20:30 Hct 33.1 % (42.0-52.0) L 07/10/19 20:30 MCV 89.1 fL (78.0-98.0) 07/10/19 20:30 Plt Count 120 thou/uL (130-400) L 07/10/19 20:30 Neutrophils % 88.8 % (42.0-75.0) H 07/10/19 20:30 Sodium 139 mmol/L (136-145) 07/10/19 20:30 Potassium 4.6 mmol/L (3.5-5.1) 07/10/19 20:30 Chloride 105 mmol/L (98-107) 07/10/19 20:30 Carbon Dioxide 22 mmol/L (23-31) L 07/10/19 20:30 BUN 72 mg/dL (8.4-25.7) H 07/10/19 20:30 Creatinine 5.47 mg/dL (0.7-1.3) H 07/10/19 20:30 Glucose 241 mg/dL (80-115) H 07/10/19 20:30 Calcium 9.8 mg/dL (7.8-10.44) 07/10/19 20:30 Total Bilirubin 0.7 mg/dL (0.2-1.2) 07/10/19 20:30 AST 8 U/L (5-34) 07/10/19 20:30 ALT 10 U/L (8-55) 07/10/19 20:30 Alkaline Phosphatase 421 U/L (40-110) H 07/10/19 20:30 Creatine Kinase 15 U/L (30-200) L 07/10/19 20:30 B-Natriuretic Peptide 583.3 pg/mL (0-100) H 07/10/19 20:30 Serum Total Protein 6.5 g/dL (5.8-8.1) 07/10/19 20:30 Albumin 3.6 g/dL (3.4-4.8) 07/10/19 20:30 Urine Ketones Negative mg/dL (Negative) 07/10/19 20:50 Urine Blood Trace (Negative) A 07/10/19 20:50 Urine Nitrite Negative (Negative) 07/10/19 20:50 Ur Leukocyte Esterase 500 Krista/uL (Negative) A 07/10/19 20:50 Urine RBC 11-20 HPF (0-3) A 07/10/19 20:50 Urine WBC Greater than 50 HPF (0-3) A 07/10/19 20:50 Ur Squamous Epith Cells None Seen HPF (0-3) 07/10/19 20:50 Urine Bacteria 4+ HPF (None Seen) A 07/10/19 20:50 Additional comment: preliminary Ct abdomen findings discussed with radiology, final report pending, see HPI and assessment/plan CXR reviewed EKG NSR [address] changes Hospitalist H&P A/P - Plan Plan: Patient is a 63 year old male with PMH DM, CAD, CABG, HLD, HTN, chronic kidney disease who presents to ED for hematuria and L flank pain beginning this morning. # L flank pain, L 8mm UPJ stone - reported on prelim read by radiology, follow final CT read when available, strain urine, consult urology Dr Fred who has managed previous kidney stones # hematuria - no clots, likely due to renal stone, strain urine overnight and consult urology. place pena and irrigate if clots develop # pneumaturia - discussed with radiology, found on prelimary read, does not extend all the way to kidney, consult urology and follow cultuires, consult infectious diseases and start broad coverage for gram negatives and anaerobes with zosyn # sepsis due to urinary tract infection and likely pyelonephritis - empiric zosyn and follow cultures # chronic thrombocytopenia - trend CBC, avoid blood thinners # acute and chronic diastolic heart failure - continue diuretic and increase torsemide to BID given findings of congestion on CXR, consider home cardiology Dr Mai consult if needed, previous echo w/ ef 50-55% # acute renal failure on CKD 4 - noted, likely urologic or obstructive component , continue to treat as above, consult Dr Tomas of nephrology and urology # insulin dependant diabetes mellitus - continue insulin at reduced dose and increase as needed + SSI # CAD, history of CABG - no active chest pain, hold blood thinners and antiplatelet given hematuria # hyperlipidemia - continue statin # HTN - continue home medications, PRN medications available # history of iron deficiency anemia - noted, trend CBC # DVT ppx - mechanical # GI ppx # Code status - full
[2019-07-10] MEDS ORDERED: HumaLOG 300 UNITS/3 ML VIAL SC PRN (23:33)
[2019-07-10] MEDS ORDERED: Dextrose 50% Abboject 50 ML SYRINGE SLOW IVP PRN (23:33)
[2019-07-10] MEDS ORDERED: Senokot S 8.6-50 MG TAB PO PRN (23:33)
[2019-07-10] MEDS ORDERED: Dextrose 5% in Water 1,000 ML IV PRN (23:33)
[2019-07-10] MEDS ORDERED: HYDROcodone/Acetaminophen 5/325 mg Tablet PO PRN (23:33)
[2019-07-10] MEDS ORDERED: Bisacodyl 5 MG TAB PO PRN (23:33)
[2019-07-10] MEDS ORDERED: Piperacillin/Tazobactam 2.25 GM in Sodium Chloride 0.9% 100 ML IVPB SCH (23:59)
[2019-07-11] MEDS: Piperacillin/Tazobactam 2.25 GM in Sodium Chloride 0.9% 100 ML IVPB SCH ×4 (02:24→21:30)
[2019-07-11 06:11] LABS: #Lymphocytes 0.5 thou/uL (1.20-3.40); #Monocytes 0.9 thou/uL (0.11-0.59); #Neutrophils 12.2 thou/uL (1.40-6.50); %Basophils 0.2 % (0.0-1.0); %Eosinophils 0.1 % (0.0-10.0); %Lymphocytes 3.6 % (21.0-51.0); %Monocytes 6.3 % (0.0-10.0); %Neutrophils 89.8 % (42.0-75.0); Hemoglobin 8.9 g/dL (14.0-18.0); Mean Corpuscular HGB CONC 31.4 g/dL (32.0-36.0); Mean Corpuscular Volume 89.2 fL (78.0-98.0); Mean Platelet Volume 8.3 fL (7.4-10.4); Platelet Count 103 thou/uL (130-400); Red Blood Cell (RBC) Count 3.19 mill/uL (4.70-6.10); White Blood Cell (WBC) Count 13.6 thou/uL (4.8-10.8)
[2019-07-11 06:23] LABS: Anion Gap 17 mmol/L (10-20); BUN (Urea Nitrogen) 75 mg/dL (8.4-25.7); Calc. Creatinine Clearance 23 mL/min (70-130); Calcium 9.1 mg/dL (7.8-10.44); Carbon Dioxide 21 mmol/L (23-31); Chloride 106 mmol/L (98-107); Estimated GFR-MDRD 10; Glucose 234 mg/dL (80-115); Potassium 4.6 mmol/L (3.5-5.1); Sodium 139 mmol/L (136-145)
--- NOTE | 2019-07-11 06:23 | CT ---
CT OF THE ABDOMEN AND PELVIS WITHOUT IV CONTRAST: 07/10/19 INDICATION: 63-year-old male with generalized abdominal pain, greater in the left flank. Patient has generalized malaise, weakness and tiredness. No reports of fever or chills; history of renal insufficiency. COMPARISON: Renal ultrasound dated 12/05/14. FINDINGS: The lung bases are clear. There is postsurgical change of prior CABG with prominent coronary artery and thoracic aortic calcifi cations. There are layered gallstones within the gallbladder. The unopacified liver is unremarkable appearing. There is splenomegaly measuring 16.8 cm. Unopacified pancreas and left adrenal gland is normal appearing. There is a small myelolipoma within the right adrenal gland measuring 1.6 cm. There is mild dilatation of the left renal collecting system with an 8.7 mm stone seen at the left UP J. There is gas present within the left renal pelvis and left renal calices. There is also gas presen t within the nondilated superior pole right renal calyx. There is a 1.6 cm cyst involving the anterio r aspect of the right kidney. There is a 2 cm cyst involving the inferior pole of the left kidney. Sm aller subcentimeter cyst seen involving the superior pole of the left kidney. There are moderate calcifications involving the abdominopelvic vasculature. There is wall thickening with intraluminal and intramural gas involving the bladder. There are promin ent calcifications of the vas deferens. There is scattered diverticula involving the colon. There is a normal retrocecal appendix. Small saurabh l is normal in caliber. There is mild nonspecific anasarca. There is diffuse cortical and trabecular thickening involving the pelvis consistent with changes of P aget's disease. No acute osseous abnormality is evident. IMPRESSION: 1. 8.7 mm stone within the left UPJ causing mild left hydronephrosis. 2. Gas is present within the lumen and wall of the bladder suspicious for changes of an emphysem atous cystitis. This can be seen in diabetic patients with bacterial UTI. There is also changes of em physematous pyelitis involving both kidneys. The right renal collecting system is nondilated. There i s no evidence to suggest renal parenchymal gas or the presence of emphysematous pyelonephritis. 3. Bilateral renal cysts. 4. Right adrenal myelolipoma. 5. 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 6. Cholelithiasis. 7. Mild splenomegaly. 8. Findings were called to Dr. Romeo Zurita at 11:50 p.m. on 07/10/19. Code CR POS: BH
[2019-07-11] MEDS: Carvedilol 6.25 MG TAB PO SCH ×2 (08:15→17:11)
[2019-07-11] MEDS: NIFEdipine XL 30 MG TAB PO SCH (08:17)
[2019-07-11] MEDS: Polyethylene Glycol 3350 17 GM Packet PO SCH (08:17)
[2019-07-11] MEDS: Famotidine 20 MG TAB PO SCH (08:17)
[2019-07-11] MEDS: hydrALAZINE 25 MG TAB PO SCH ×3 (08:17→21:36)
[2019-07-11] MEDS: Torsemide 20 MG TAB PO SCH ×2 (08:18→14:06)
[2019-07-11] MEDS ORDERED: Non-Formulary Item 1 EACH (Insulin Glargine,Hum.Rec.Anlog [Lantus Solostar] 50 UNIT) SQ SCH (09:00)
[2019-07-11] MEDS: Insulin Glargine 50 UNITS in Pre-Filled Syringe 1 EACH SC SCH ×2 (11:04→21:38)
--- NOTE | 2019-07-11 11:10 | CON ---
DATE OF CONSULTATION: 07/11/2019 CONSULTING PHYSICIAN: Romeo Zurita MD REASON FOR CONSULTATION: Acute kidney injury on chronic kidney disease, stage 5. REASON FOR ADMISSION: Left flank pain. HISTORY OF PRESENT ILLNESS: This is a 63-year-old male with history of diabetes, CKD, coronary artery disease, who came to the hospital with above complaints and was evaluated for nephrolithiasis. Urology is also consulted. The patient does follow with Dr. Tomas and had a fistula placement in March 2019 and seems like it is good to get started on dialysis. I did talk with Dr. Ayoub, also he is going to evaluate it. The patient is having some weakness and shortness of breath at baseline. PAST MEDICAL HISTORY: Positive for chronic kidney disease, CHF, CAD, hypertension, hyperlipidemia, anemia, and cardiorenal syndrome. PAST SURGICAL HISTORY: CABG, cystoscopy. HOME MEDICATIONS: Reviewed. ALLERGIES: NO KNOWN DRUG ALLERGIES. SOCIAL HISTORY: Former smoker. No alcohol history. FAMILY HISTORY: No history of any kidney disease. REVIEW OF SYSTEMS: CONSTITUTIONAL: Negative for weight loss or gain, ability to conduct usual activities. SKIN: Negative for rash, itching. EYES: Negative for double vision, pain. ENT/MOUTH: Negative for nose bleeding, neck stiffness, pain, tenderness. CARDIOVASCULAR: Negative for palpitations, dyspnea on exertion, orthopnea. RESPIRATORY: Negative for shortness of breath, wheezing, cough, hemoptysis, fever or night sweats. GASTROINTESTINAL: Negative for poor appetite, abdominal pain, heartburn, nausea, vomiting, constipation, or diarrhea. GENITOURINARY: Negative for urgency, frequency, dysuria, nocturia. MUSCULOSKELETAL: Negative for pain, swelling. NEUROLOGIC/PSYCHIATRIC: Negative for anxiety, depression. ALLERGY/IMMUNOLOGIC: Negative for skin rash, bleeding tendency. PHYSICAL EXAMINATION: GENERAL: This is a well-built male, in no apparent distress. VITAL SIGNS: Temperature 98.0, pulse 63, respiratory rate 18, and blood pressure 146/79. HEENT: Atraumatic, normocephalic. Oral mucosa moist. NECK: Supple. CARDIOVASCULAR: S1 and S2. Regular rate and rhythm. RESPIRATORY: Clear. GASTROINTESTINAL: Abdomen is soft. MUSCULOSKELETAL: 1+ edema. DERMATOLOGIC: No skin rash. NEUROLOGIC: Alert and awake. PSYCHIATRIC: Mood and affect normal. LABORATORY DATA: Potassium is 4.6, BUN is 75, and creatinine is 5.6. ASSESSMENT AND PLAN: 1. End-stage renal disease. Plan is start dialysis. I did consult Dr. Ayoub and he is going to evaluate the fistula to see if he is ready to use will try fistula, if not better, consult Dr. Ayoub. 2. Chronic anemia. We will start on Epogen. 3. Acidosis, chronic. 4. Elevated BNP. 5. Edema, controlled. 6. Hypertension. Plan is to start on dialysis. We will monitor. Job ID: [id number]
[2019-07-11 11:20] LABS: HBSAg Index 0.19 S/CO (0-0.99); Hep B Core Total Ab Non-Reactive (NonReactive); Hep B Core Total Index 0.12 S/CO (0-0.79); Hep B Surf Ag Non-Reactive S/CO (NonReactive)
[2019-07-11 11:21] LABS: HBSAB Concentration 2.57 mIU/mL; Hep B Surf AB Non-Reactive (NonReactive); Hep C IgG Ab Non-Reactive (NonReactive); Hep C Index 0.15 S/CO (0-0.79)
[2019-07-11] MEDS ORDERED: Lidocaine 1% PF 5 ML VIAL ONE (11:21)
[2019-07-11] MEDS ORDERED: EPHEDRINE 25 MG/5 ML SYRINGE ONE (11:21)
[2019-07-11] MEDS ORDERED: PROPOFOL 200 MG/20 ML VIAL ONE (11:21)
[2019-07-11] MEDS ORDERED: Glycopyrrolate 0.2 MG/ML 5 ML SYRINGE ONE (11:21)
[2019-07-11] MEDS ORDERED: Rocuronium Bromide 10 MG/ML (10ML VIAL) ONE (11:21)
[2019-07-11] MEDS ORDERED: Ondansetron PF 4 MG/2 ML Vial ONE (11:21)
[2019-07-11] MEDS ORDERED: Fluconazole In NaCl,Iso-Osm 200 MG in Premix Bag 1 BAG IVPB SCH (13:15)
--- NOTE | 2019-07-11 13:46 | CON ---
DATE OF CONSULTATION: Carlos Pedro on April 23 had a right Shawna fistula in wrist placed. He is admitted to this hospitalization. Dr. Padron has asked me if this can be accessed. As I walked into the room to evaluate him, he has a left antecubital IV in place and I have removed it. His potassium is 4.6, BUN 75, creatinine 5.66. He has a good thrill and bruit in his fistula, right Shawna, forearm. We would recommend to try to access this. If there is difficulty and he needs a dialysis catheter, I can place that. Hopefully, that will not be necessary. we would avoid IVs and blood draws above his wrist, even on his non-fistulous arm to preserve veins for future dialysis access in a 63-year-old male. Job ID: [id number]
[2019-07-11 13:56] LABS: HBSAB Concentration 2.75 mIU/mL; HBSAg Index 0.15 S/CO (0-0.99); Hep B Core Total Ab Non-Reactive (NonReactive); Hep B Surf AB Non-Reactive (NonReactive); Hep B Surf Ag Non-Reactive S/CO (NonReactive); Hep C IgG Ab Non-Reactive (NonReactive); Hep C Index 0.14 S/CO (0-0.79)
[2019-07-11] MEDS ORDERED: Piperacillin/Tazobactam 2.25 GM VIAL ONE (15:03)
--- NOTE | 2019-07-11 16:07 | PDOC.HOSPP ---
- Subjective Subjective: Seen and examined. Patient denies flank pain. He is still having hematuria and found to have nephrolithiasis, Urology input has been requested. Patient has been set up with fistula in the outpatient setting in preparation for hemodialysis. Patient will likely require hemodialysis in the near future. Time was given for questions, all answered in detail. - Objective Vital Signs & Weight: Vital Signs (12 hours) Temp Pulse Resp BP BP Pulse Ox 07/11/19 11:00 98.2 F 66 18 130/70 100 07/11/19 08:33 100 07/11/19 08:17 63 146/79 H 07/11/19 08:15 146/79 H 07/11/19 07:54 98.0 F 63 18 146/79 H 100 Weight Weight 272 lb 9.6 oz I&O: 07/10/19 07/11/19 07/12/19 06:59 06:59 06:59 Output Total 700 Balance -700 Result Diagrams: 07/11/19 05:38 07/11/19 05:38 Additional Labs: Accuchecks 07/11/19 07/11/19 07/11/19 10:06 05:21 01:08 POC Glucose 234 H 241 H 230 H Radiology Reviewed by me: Yes Hospitalist ROS - Review of Systems All other systems reviewed; all pertinent +/- noted in HPI/Subj - Medication Medications: Active Medications Generic Name Dose Route Start Last Admin Trade Name Freq PRN Reason Stop Dose Admin Carvedilol 6.25 mg 07/11/19 08:00 07/11/19 08:15 Coreg PO 6.25 mg BID-WM ANN Administration Famotidine 20 mg 07/11/19 09:00 07/11/19 08:17 Pepcid PO 20 mg DAILY ANN Administration Hydralazine HCl 25 mg 07/11/19 09:00 07/11/19 14:06 Apresoline PO Not Given TID ANN Insulin Glargine 50 units/ 0.5 mls @ 0 mls/hr 07/11/19 09:00 07/11/19 11:04 Miscellaneous Medication SC Not Given BID ANN Piperacillin Sod/Tazobactam 100 mls @ 200 mls/hr 07/11/19 02:00 07/11/19 14: 59 Sod 2.25 gm/ Sodium Chloride IVPB 100 mls 0200,0800,1400,2000 ANN Administration Insulin Human Lispro 0 units 07/10/19 23:33 07/11/19 06:15 Humalog SC 4 units .MODERATE SLIDING SC PRN Administration Moderate Correctional Scale Nifedipine 30 mg 07/11/19 09:00 07/11/19 08:17 Procardia Xl PO 30 mg DAILY ANN Administration Polyethylene Glycol 17 gm 07/11/19 09:00 07/11/19 08:17 Miralax PO Not Given DAILY ANN Torsemide 100 mg 07/11/19 09:00 07/11/19 14:06 Demadex PO Not Given 0900,1400 ANN - Exam General Appearance: NAD, awake alert Eye: anicteric sclera ENT: normocephalic atraumatic, moist mucosa Neck: supple, symmetric, no lymphadenopathy Heart: no murmur, no gallops, no rubs Respiratory: CTAB, no wheezes, no rales, no ronchi, normal chest expansion, no tachypnea Gastrointestinal: soft, non-tender, non-distended, normal bowel sounds Extremities: no edema Skin: no lesions, no rashes Neurological: cranial nerve grossly intact, no focal deficits Musculoskeletal: generalized weakness Psychiatric: normal affect, normal behavior, A&O x 3 Hosp A/P (1) Hematuria Code(s): R31.9 - HEMATURIA, UNSPECIFIED Status: Acute (2) Nephrolithiasis Status: Acute (3) Hydronephrosis Code(s): N13.30 - UNSPECIFIED HYDRONEPHROSIS Status: Acute (4) Diastolic CHF, acute on chronic Code(s): I50.33 - ACUTE ON CHRONIC DIASTOLIC (CONGESTIVE) HEART FAILURE Status : Acute (5) S/P CABG (coronary artery bypass graft) Code(s): Z95.1 - PRESENCE OF AORTOCORONARY BYPASS GRAFT Status: Acute (6) Anemia, chronic renal failure Code(s): N18.9 - CHRONIC KIDNEY DISEASE, UNSPECIFIED; D63.1 - ANEMIA IN CHRONIC KIDNEY DISEASE Status: Chronic (7) CAD (coronary artery disease) Code(s): I25.10 - ATHSCL HEART DISEASE OF [place] CORONARY ARTERY W/O ANG PCTRS Status: Chronic Qualifiers: Coronary Disease-Associated Artery/Lesion type: bypass graft [place] vs. transplanted heart: [place] heart Associated angina: without angina Qualified Code(s): I25.810 - Atherosclerosis of coronary artery bypass graft(s) without angina pectoris (8) CKD (chronic kidney disease) stage 4, GFR 15-29 ml/min Code(s): N18.4 - CHRONIC KIDNEY DISEASE, STAGE 4 (SEVERE) Status: Chronic (9) Diabetes mellitus, type II, insulin dependent Code(s): E11.9 - TYPE 2 DIABETES MELLITUS WITHOUT COMPLICATIONS; Z79.4 - PILLOW AGENT (CURRENT) USE OF INSULIN Status: Chronic (10) HLD (hyperlipidemia) Code(s): E78.5 - HYPERLIPIDEMIA, UNSPECIFIED Status: Chronic Qualifiers: Hyperlipidemia type: unspecified Qualified Code(s): E78.5 - Hyperlipidemia , unspecified (11) HTN (hypertension) Code(s): I10 - ESSENTIAL (PRIMARY) HYPERTENSION Status: Chronic Qualifiers: Hypertension type: essential hypertension Qualified Code(s): I10 - Essential (primary) hypertension (12) Obesity (BMI 30.0-34.9) Code(s): E66.9 - OBESITY, UNSPECIFIED Status: Chronic - Plan Plan: medical unit urology consultation, recommendations appreciated surgery consultation, recommendations appreciated nephrology consultation, recommendations appreciated may require definitive management for nephrolithiasis and hematuria per urology monitor for acute blood loss anemia and worsening of chronic kidney disease has had fistula placement, they will attempt to access this for hemodialysis no IVs above the wrist (bilaterally) to preserve his veins for HD access in the future long and short acting insulin for glucose control continue other home medications as able blood sugar control blood pressure control G.I. prophylaxis DVT prophylaxis
[2019-07-11] MEDS: Rosuvastatin 10 MG TAB PO SCH (17:00)
[2019-07-11] MEDS ORDERED: Rosuvastatin 20 MG TAB PO SCH (17:00)
[2019-07-11] MEDS: prednisoLONE 1% Ophth Susp 5 ml Bottle L EYE SCH ×2 (17:06→21:40)
[2019-07-11] MEDS ORDERED: Iopamidol 50 ML FS ONE (18:58)
[2019-07-11] MEDS ORDERED: Fentanyl 100 MCG/2 ML VIAL ONE (19:06)
[2019-07-11] MEDS ORDERED: B & O ONE (19:58)
--- NOTE | 2019-07-11 19:58 | CON ---
DATE OF CONSULTATION: 07/11/2019 REASON FOR CONSULTATION: 1. Left-sided flank pain with radiation to the left testicle. 2. CT scan confirming left UPJ calculus with proximal . 3. Urinary tract infection. 4. Chronic kidney disease. HISTORY OF PRESENT ILLNESS: Mr. 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 The patient has had chronic kidney disease, diabetes mellitus, and coronary artery disease for sometime. He has been a past patient of Dr. Shayne Ibarra for kidney stones. The patient has undergone previous therapy for kidney stones by Dr. Ibarra as well. The patient was admitted on this admission with flank pain consistent with an obstructive process and underwent CT scanning demonstrating a . He apparently has pyelitis with a gas-forming organism based on the assessment there. PAST MEDICAL HISTORY: 1. Chronic kidney disease. 2. Congestive heart failure. 3. Coronary artery disease, status post CABG. 4. Hypertension. 5. Hyperlipidemia. 6. Anemia. 7. Cardiorenal syndrome. PAST SURGICAL HISTORY: 1. Coronary artery bypass. 2. Cystoscopy and stent placement as well as probable ureteroscopy. MEDICATION LIST: Please see the MAR. ALLERGIES: NO KNOWN DRUG ALLERGIES. SOCIAL HISTORY: The patient is a former smoker. He has no alcohol history. Formally employed by the [employer]. 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 FAMILY MEDICAL HISTORY: Negative for kidney disease. There is no family history of prostate cancer. REVIEW OF SYSTEMS: CONSTITUTIONAL: Negative for weight gain, weight loss, or COVID-19 symptoms. SKIN: Negative. EYES: Negative for double vision. Positive for pterygium. EARS, NOSE AND MOUTH: Negative for nose bleeds. CARDIOVASCULAR: Negative for current chest pain. Positive for past coronary artery bypass. PULMONARY: Negative for shortness of breath, wheezing or cough. No hemoptysis or night sweats. GASTROINTESTINAL: Negative for nausea and vomiting. No complaints of diarrhea or constipation. GENITOURINARY: Positive for left-sided flank pain, as well as left testicular pain. MUSCULOSKELETAL: Negative for pain or swelling. NEUROLOGIC: Negative for cranial nerve or peripheral nerve issues other than those associated with diabetes mellitus. ALLERGIES: Negative. PHYSICAL EXAMINATION: VITAL SIGNS: Temperature is 97.8, pulse is 58, blood pressure is 148/72, O2 saturation on room air is 100%. GENERAL: This is a pleasant awake, alert, white male, in no apparent distress. HEAD, EYES, EARS, NOSE, AND THROAT: Extraocular movements are intact. Sclerae are anicteric. Oropharynx is clear. NECK: Supple. LUNGS: Clear to auscultation bilaterally. CARDIAC: There is a regular rate and rhythm. CHEST: There is a well-healed coronary artery bypass graft scar. There is distention of the abdomen. There is no tenderness to the abdomen anteriorly. BACK: There is positive left-sided costovertebral angle tenderness, which seems to be focal to the upper tract. The patient reports that he had previous left-sided testicular discomfort, but this seems to be resolved. GENITOURINARY: Phallus is without lesion. Urethral meatus appears adequate. Testes are present bilaterally. Scrotum is smooth, anodular, nontender. Digital rectal examination is deferred to the operative suite. EXTREMITIES: There are signs of previous coronary graft harvest sites on the legs. There is no undue edema or swelling. Right extremity has been marked for the AV fistula, which is present, was completed in March of this year. There was a palpable thrill and bruit with machinery like murmur heard on auscultation. MICROBIOLOGY: The patient has presumptive E coli of urine on 07/10/2019. LABORATORY STUDIES: White count is 13,600 today up from 11,500 yesterday. Neutrophil count is 89.8, ANC is 12.2. Urinalysis from admission shows 1+ budding yeast in the urine, 4+ bacteria, 500 units of leukocyte esterase and 11-20 red cells per high-power field with greater than 50 white cells per high-power field. Urine gravity is 1.010 with a pH of 6.5, gravity of 1.010. ASSESSMENT AND PLAN: 1. CT scan of the abdomen and pelvis was performed on 07/10/2019. This demonstrates a pneumogram of the left upper collecting system with an 8.7 mm stone seen at the left ureteropelvic junction. There is also a 1.6 cm cyst involving the anterior aspect of the patient's right kidney contralateral to the obstructed side. There is also a 2 cm cyst involving the inferior pole of the left kidney. 2. The patient also has cholelithiasis and mild splenomegaly. 3. Obstructing ureteropelvic junction calculus in the context of renal failure and additional context of urinary tract infection with apparent Escherichia coli and possibly with yeast based on urinalysis assessment. The patient is currently on Zosyn coverage. I am recommending adding Diflucan to his coverage based on the urinalysis results and presence of gas-forming organisms. Plan would be to proceed to the operative suite for cystoscopy and stent placement since the patient has been on antibiotic coverage for 24 hours. Job ID: [id number]
[2019-07-11] MEDS ORDERED: Promethazine HCl 25 MG/ML VIAL SLOW IVP PRN (20:13)
[2019-07-11] MEDS ORDERED: PACU-Morphine 4MG/ML VIAL SLOW IVP PRN (20:13)
[2019-07-11] MEDS ORDERED: Promethazine HCl 25 MG/ML VIAL IM PRN (20:13)
[2019-07-11] MEDS ORDERED: HYDROmorphone 2 MG/ML VIAL SLOW IVP PRN (20:13)
[2019-07-11] MEDS ORDERED: Ondansetron HCl/PF 4 MG/2 ML Vial IVP PRN (20:13)
--- NOTE | 2019-07-11 20:48 | RAD ---
THIRTEEN IMAGES FROM A LEFT SIDED RETROGRADE IVP: 07/11/19 INDICATION: Renal stone. COMPARISON: Prior CT of the abdomen and pelvis dated 07/10/19. FINDINGS: 8 mm stone within the left UPJ is again demonstrated. Subsequent images demonstrate placement of a le ft ureteral stent with its tips projecting in the region of the bladder and left superior calyx. Ston e remains within the region of the left renal pelvis. Mild amount of residual distention is seen invo lving the left renal collecting system on the final submitted image. IMPRESSION: Left retrograde IVP as above. POS: BH
[2019-07-11] MEDS ORDERED: cefTRIAXone\\ROCEPHIN 1 GM in Sodium Chloride 0.9% 100 ML IVPB SCH (22:00)
--- NOTE | 2019-07-12 01:20 | OP ---
DATE OF PROCEDURE: 07/11/2019 PREOPERATIVE DIAGNOSES: 1. Left ureteropelvic junction obstructing calculus, N20.1. 2. Left renal pneumogram secondary to gas-forming organism. 3. Chronic kidney disease. 4. Prostate hypertrophy with obstruction. 5. History of kidney stones. POSTOPERATIVE DIAGNOSES: 1. Left ureteropelvic junction obstructing calculus, N20.1. 2. Left renal pneumogram secondary to gas-forming organism. 3. Chronic kidney disease. 4. Prostate hypertrophy with obstruction. 5. History of kidney stones. 6. Multilevel urethral stricture disease at the fossa navicularis, mid urethra, and perineal areas. 7. Bladder diverticula stage IV trabeculation. PROCEDURES PERFORMED: 1. Cystourethroscopy of left-sided stent, 72539. 2. Cystourethroscopy of left-sided retrograde pyelography, 88727. 3. Passive dilation of multilevel urethral stricture disease. SPECIMENS REMOVED: Left UPJ fluid for culture. ESTIMATED BLOOD LOSS: None. BRIEF HISTORY AND INDICATION FOR PROCEDURE: Mr. Carlos Eckert is a pleasant 63-year-old white male, patient usually of Dr. Ibarra in the past for kidney stones, who has renal failure and recently received a right arm AV fistula with intention of hemodialysis. The patient also has an obstructing left-sided ureteral calculus, which on this hospital admission had documented pneumogram behind the calculus. This suggests the presence of a gas-forming organism. The patient was admitted with congestive heart failure symptoms and his renal insufficiency. Dialysis is being considered. DESCRIPTION OF PROCEDURE: The patient was appropriately identified in the preoperative holding area. Informed and written consent was obtained. Patient was transported to the operative suite, placed in the supine position on the cysto-fluorographic table. General anesthesia was established. The patient was repositioned in the supine lithotomy position and prepped and draped in usual sterile fashion. Cystoscopic assessment was performed using a 22-Greenlandic cystoscope sheath with a 30-degree optic. The patient's urethra demonstrated the presence of multilevel urethral stricture disease in the fossa navicularis, mid urethra, and perineal areas. The patient's prostate gland was hypertrophic in nature and was enlarged. There were some inflammatory type blebs observed upon the patient's prostate gland. We passed the scope into the patient's bladder, where some blood was found. We irrigated this free, identified the patient's left and right ureteric orifices. There was no efflux observed on the left side. Weak intermittent efflux was observed on the right. We then passed a 0.035 angled Glidewire into the patient's left ureter and then advanced a 5-Greenlandic [place] catheter adjacent to this. We performed retrograde pyelography. It showed no filling defects except at the UPJ level, where there was a complete obstruction. We passed a 0.035 angled Glidewire up to this obstructing calculus, which appeared radiolucent on fluorography and then performed retrograde pyelography. We then passed a wire past this calculus, dislodging it backwards into the patient's renal pelvis. We then aspirated fluid from the patient's renal pelvis for culture. We obtained approximately 5 mL of fluid and about 25 mL of gas. The patient's collecting system was then filled with contrast to allow identification of the patient's stone, which was round and radiolucent in appearance. The patient's collecting system was drained. We placed a 4.5-Greenlandic x 28 cm double-J ureteral stent into the patient's left collecting system with good coil obtained in the patient's bladder. The string was removed. The patient's bladder was drained at the close of the procedure. We applied a belladonna and opioid 16A 60 mg suppository per rectum and closed the procedure. The patient's prostate gland appeared rubbery in characteristic without obvious sign of prostate cancer. The patient was awakened and extubated in the operative suite, transported to the postoperative recovery area in good condition. COMPLICATIONS: None evident. SPECIMENS: Urine for culture. DRAINS AND TUBES REMOVED: 4.5-Greenlandic x 28 cm double-J ureteral stent in the left ureter without string. Job ID: [id number]
[2019-07-12] MEDS: Piperacillin/Tazobactam 2.25 GM in Sodium Chloride 0.9% 100 ML IVPB SCH ×3 (02:25→16:10)
--- NOTE | 2019-07-12 06:36 | CON ---
DATE OF CONSULTATION: 07/11/2019 REASON FOR CONSULTATION: Obstructive pyelonephritis. HISTORY OF PRESENT ILLNESS: A 63-year-old who has a history of type 2 diabetes, coronary artery disease with prior bypass graft surgery, and end-stage renal disease, not yet on hemodialysis, but getting ready to be started on it, who has had a history of nephrolithiasis for many years now. The last one was more than 15 years ago. He did have stenting done by Dr. Ibarra about 20 years before, but since then has not had any further issues that required intervention regarding his nephrolithiasis problem. In 03/2019, the patient was admitted with worsening swelling and dyspnea, and he was found to be volume overloaded. He was given diuretics in consultation with turntable engineer and an AV fistula was placed by Dr. Ayoub in the right upper extremity in preparation for hemodialysis. He is still having pretty good amount of urinary output and has not been started on hemodialysis yet. At this time, he comes in with pain in the left flank area, progressive onset for about a week before admission. No reported fever or chills. No headaches. No dyspnea or cough. No chest pain. He is still having urinary output, but has noticed gross hematuria. No joint symptoms or other skin disorder. MEDICAL HISTORY: 1. Type 2 diabetes. 2. Coronary artery disease with prior bypass graft surgery. 3. Hypertension. 4. Hyperlipidemia. 5. CKD, end-stage with fistula in the right wrist placed recently in preparation to start hemodialysis. SOCIAL HISTORY: Lives in [place]. He is retired. Lives with . Quit smoking fairly recently. No alcoholic beverage use or drug use. ALLERGY HISTORY: Negative. CURRENT MEDICATIONS: 1. [place]. 2. DuoNeb. 3. Dulcolax. 4. Coreg. 5. Catapres. 6. Pepcid. 7. Diflucan. 8. Insulin. 9. Procardia. 10. Zofran. 11. Zosyn. PHYSICAL EXAMINATION: VITAL SIGNS: T-max 98.2, blood pressure 130/70, pulse 66, respirations 18, and O2 saturation 100. SKIN: Right AV fistula with no abnormalities. The patient had an antecubital IV access, which has been removed to preserve his vein access for future dialysis access need. He does not have a Ayala catheter. No lymphadenopathy. HEENT: Ocular movements conjugate. Sclerae white. Pupils are equal. Conjunctivae normal. NECK: Supple. No jugular vein distention. LUNGS: Symmetric with clear breath sound. Maybe faint inspiratory crackles at the very bases of right and left side. No back tenderness. No wheezing. HEART: S1 and S2. Diminished heart sounds. No S3 or S4 or murmurs. ABDOMEN: Slightly distended, but not tender. No ascites. No bladder distention. EXTREMITIES: No joint inflammatory activity. Pulses are diminished in dorsalis pedis and faintly palpable in popliteals. Trace edema in the lower extremities. He moves extremities equally. Plantar responses are flexor. No clonus. NEUROLOGIC: He is awake and oriented, follows commands. Speech pattern is normal. Recall is normal. LABORATORY DATA: White cell count 11.5 and 13.6, hemoglobin 10.5, MCV 89, platelets 120 and 103, and 88% neutrophils. Sodium 139, creatinine is 5.47 which is similar to his baseline. His liver profile normal except for alkaline phosphatase of 421. CK 15. BNP 583. Urinalysis with greater than 50 wbc's, 4+ bacteria, and 1+ budding yeast. We have specimen submitted for urine culture, but no specimens for blood culture submitted. IMAGING STUDIES: An abdomen and pelvis CT, which demonstrated 8.7 mm stone within the left UPJ with mild left hydronephrosis, gas within the lumen and wall of the bladder and gas within the lumen of the renal outflow tract of both kidneys. There is no evidence of emphysematous pyelonephritis. 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 Mild splenomegaly. Chest x-ray with mild cardiomegaly and mild pulmonary vascular congestion. Dr. Ibarra has been consulted, and I believe Dr. Ruelas is going to see the patient later on to place a stent in the left side. Currently, he is receiving Zosyn and Diflucan. ASSESSMENT: 1. Type 2 diabetes. 2. End-stage renal disease, not yet on hemodialysis. 3. Ischemic cardiomyopathy. 4. Nephrolithiasis with now recrudescence after many years of apparent remission with obstruction of the left ureteropelvic junction, requiring stent placement. DISCUSSION: The patient will have the intervention to relieve the obstructive process and allow proper drainage of the urine and decrease the risk of further exacerbation of the infectious process. The patient will continue to receive current antimicrobials. We will monitor his cultures and adjust them accordingly. After completion of the culture evaluation, then we will see if we are going to use IV or oral regimen for discharge planning. Duration of therapy will be anywhere from 2 to 4 weeks depending on the patient's organism isolated as well as the schedule for the removal of the stone through lithotripsy as well as removal of the stent. Job ID: [id number] MTDD
[2019-07-12 06:40] LABS: #Eosinphils 0.1 thou/uL (0.0-0.7); #Lymphocytes 0.7 thou/uL (1.20-3.40); #Monocytes 0.4 thou/uL (0.11-0.59); #Neutrophils 4.4 thou/uL (1.40-6.50); %Basophils 0.6 % (0.0-1.0); %Eosinophils 2.5 % (0.0-10.0); %Lymphocytes 12.7 % (21.0-51.0); %Monocytes 7.4 % (0.0-10.0); %Neutrophils 76.9 % (42.0-75.0); Hemoglobin 8.3 g/dL (14.0-18.0); Mean Corpuscular HGB CONC 31.2 g/dL (32.0-36.0); Mean Corpuscular Hemoglobin 28.2 pg (27.0-31.0); Mean Corpuscular Volume 90.5 fL (78.0-98.0); Mean Platelet Volume 8.4 fL (7.4-10.4); Platelet Count 81 thou/uL (130-400); Red Blood Cell (RBC) Count 2.95 mill/uL (4.70-6.10); White Blood Cell (WBC) Count 5.7 thou/uL (4.8-10.8)
[2019-07-12 06:41] LABS: Anion Gap 18 mmol/L (10-20); BUN (Urea Nitrogen) 82 mg/dL (8.4-25.7); Calc. Creatinine Clearance 22 mL/min (70-130); Calcium 8.8 mg/dL (7.8-10.44); Carbon Dioxide 20 mmol/L (23-31); Chloride 105 mmol/L (98-107); Estimated GFR-MDRD 10; Glucose 168 mg/dL (80-115); Potassium 4.7 mmol/L (3.5-5.1); Sodium 138 mmol/L (136-145)
[2019-07-12] MEDS: Torsemide 20 MG TAB PO SCH ×2 (09:33→16:13)
[2019-07-12] MEDS: hydrALAZINE 25 MG TAB PO SCH ×3 (09:34→20:43)
[2019-07-12] MEDS: Carvedilol 6.25 MG TAB PO SCH ×2 (09:34→16:14)
[2019-07-12] MEDS: Famotidine 20 MG TAB PO SCH (09:34)
[2019-07-12] MEDS: Insulin Glargine 50 UNITS in Pre-Filled Syringe 1 EACH SC SCH ×2 (09:35→20:51)
[2019-07-12] MEDS: prednisoLONE 1% Ophth Susp 5 ml Bottle L EYE SCH ×3 (09:36→20:43)
[2019-07-12] MEDS: Polyethylene Glycol 3350 17 GM Packet PO SCH (09:36)
[2019-07-12] MEDS: NIFEdipine XL 30 MG TAB PO SCH (09:45)
--- NOTE | 2019-07-12 10:40 | PRG ---
DATE OF SERVICE: 07/12/2019 SUBJECTIVE: Patient was seen and examined at bedside and overnight events noted. Patient denies any shortness of breath or chest pain or palpitation. No history of nausea or vomiting or diarrhea or fever or chills or cramps. OBJECTIVE: General: This is a well-built male, in no apparent distress. VITAL SIGNS: Temperature 97.5, pulse 60, respiratory rate 18, blood pressure 140/61. HEENT: Atraumatic, normocephalic. Oral mucosa is moist. NECK: Supple. CARDIOVASCULAR: S1, S2 heard. Rate and rhythm regular. RESPIRATORY: Clear to auscultation. GASTROINTESTINAL: Abdomen is soft. MUSCULOSKELETAL: No tenderness. No edema. DERMATOLOGIC: No skin rash. NEUROLOGIC: Alert and awake and oriented x3. No focal neurologic deficits. Moving all the extremities. PSYCHIATRIC: Mood and affect normal. LABORATORY DATA: Potassium 4.7, BUN is 82, creatinine is 5.8. ASSESSMENT AND PLAN: 1. Acute kidney injury on chronic kidney disease, stage 5. The patient did not want to start dialysis yet. It feels like he want to wait for few more weeks to see kidneys will improve or not. 2. Chronic anemia. 3. Acidosis. 4. Elevated BNP. 5. Edema. 6. Hypertension. 7. No plan for dialysis. The patient was consulted regarding worsening of renal labs. The patient wants to wait and give few more weeks. Job ID: [id number]
--- NOTE | 2019-07-12 11:41 | PDOC.HOSPP ---
- Subjective Encounter Date: 07/12/19 Encounter Time: 11:30 Subjective: f/u for L ureterolithiasis with obstruction s/p cystoureteroscopy with passive dilation and stent placement with cx obtained showing E. coli. Receiving Zosyn q6h. - Objective Vital Signs & Weight: Vital Signs (12 hours) Temp Pulse Resp BP BP BP Pulse Ox 07/12/19 09:45 64 139/68 07/12/19 09:34 64 139/68 07/12/19 07:26 97.5 F L 62 17 140/64 97 07/12/19 04:00 97.6 F 58 L 18 122/70 95 07/12/19 00:10 97.6 F 58 L 18 129/70 94 L Weight Weight 272 lb 9.6 oz I&O: 07/11/19 07/12/19 07/13/19 06:59 06:59 06:59 Intake Total 330 Output Total 700 375 Balance -700 -45 Result Diagrams: 07/12/19 06:00 07/12/19 06:00 Additional Labs: Accuchecks 07/12/19 07/11/19 07/11/19 04:35 21:19 16:08 POC Glucose 185 H 199 H 209 H Microbiology 07/10/19 20:50 Urine voided Urine Culture - Final Escherichia coli 07/11/19 19:47 Renal Pelvis - Left Urine Culture - Preliminary Gram Negative Eddie Laboratory Tests 10/03/17 10/19/17 10/19/17 07:48 15:30 15:30 WBC Hgb Plt Count Carbon Dioxide BUN 87 H 93 H Creatinine 3.92 H 3.96 H Iron TIBC % Saturation Ferritin B-Natriuretic Peptide 448.0 H 10/19/17 10/21/17 10/21/17 15:30 05:16 05:16 WBC Hgb 8.3 L Plt Count Carbon Dioxide BUN Creatinine 4.40 H Iron 21 L 19 L TIBC 255 L % Saturation 7 L Ferritin B-Natriuretic Peptide 10/21/17 10/22/17 10/23/17 05:16 05:33 05:28 WBC Hgb Plt Count Carbon Dioxide BUN Creatinine 4.13 H 3.91 H Iron TIBC % Saturation Ferritin 131.69 B-Natriuretic Peptide 04/12/19 07/10/19 07/10/19 11:18 20:30 20:30 WBC 11.5 H Hgb 10.5 L Plt Count 120 L Carbon Dioxide BUN Creatinine Iron TIBC % Saturation Ferritin B-Natriuretic Peptide 242.0 H 583.3 H 07/11/19 07/11/19 05:38 05:38 WBC 13.6 H Hgb 8.9 L Plt Count 103 L Carbon Dioxide 21 L BUN 75 H Creatinine 5.66 H Iron TIBC % Saturation Ferritin B-Natriuretic Peptide Hospitalist ROS - Medication Medications: Active Medications Generic Name Dose Route Start Last Admin Trade Name Freq PRN Reason Stop Dose Admin Carvedilol 6.25 mg 07/11/19 08:00 07/12/19 09:34 Coreg PO 6.25 mg BID-WM ANN Administration Famotidine 20 mg 07/11/19 09:00 07/12/19 09:34 Pepcid PO 20 mg DAILY ANN Administration Hydralazine HCl 25 mg 07/11/19 09:00 07/12/19 09:34 Apresoline PO 25 mg TID ANN Administration Insulin Glargine 50 units/ 0.5 mls @ 0 mls/hr 07/11/19 09:00 07/12/19 09:35 Miscellaneous Medication SC 0.5 mls BID ANN Administration Piperacillin Sod/Tazobactam 100 mls @ 200 mls/hr 07/11/19 02:00 07/12/19 09: 32 Sod 2.25 gm/ Sodium Chloride IVPB 100 mls 0200,0800,1400,2000 ANN Administration Insulin Human Lispro 0 units 07/10/19 23:33 07/11/19 06:15 Humalog SC 4 units .MODERATE SLIDING SC PRN Administration Moderate Correctional Scale Nifedipine 30 mg 07/11/19 09:00 07/12/19 09:45 Procardia Xl PO 30 mg DAILY ANN Administration Polyethylene Glycol 17 gm 07/11/19 09:00 07/12/19 09:36 Miralax PO 17 gm DAILY ANN Administration Prednisolone Acetate 1 drop 07/11/19 15:00 07/12/19 09:36 Econopred Plus 1% Opth Susp L EYE 1 drop TID ANN Administration Rosuvastatin Calcium 10 mg 07/11/19 17:00 07/11/19 17:00 Crestor PO Not Given 1700 ANN Torsemide 100 mg 07/11/19 09:00 05/14/20 09:33 Demadex PO 100 mg 0900,1400 ANN Administration - Exam General Appearance: NAD, awake alert Eye: PERRL, anicteric sclera ENT: normocephalic atraumatic, no oropharyngeal lesions Neck: supple, symmetric, no JVD, no thyromegaly, no lymphadenopathy Heart: RRR, no murmur, no gallops, no rubs, normal peripheral pulses Heart - other findings: S1, S2 Respiratory: CTAB, no wheezes, no rales, no ronchi, normal chest expansion Gastrointestinal: soft, non-tender, non-distended, normal bowel sounds Extremities: no cyanosis, no clubbing, no edema Skin: normal turgor, no lesions Neurological: cranial nerve grossly intact, no new deficit Musculoskeletal: normal tone, normal strength, no muscle wasting Psychiatric: normal affect, A&O x 3 Hosp A/P (1) Ureterolithiasis Code(s): N20.1 - CALCULUS OF URETER Status: Acute Plan: s/p L ureteral stent placement, continue Zosyn (2) Sepsis due to gram-negative UTI Code(s): A41.50 - GRAM-NEGATIVE SEPSIS, UNSPECIFIED; N39.0 - URINARY TRACT INFECTION, SITE NOT SPECIFIED Status: Acute Plan: E. coli spp isolated, continue Zosyn (3) CKD (chronic kidney disease) stage 4, GFR 15-29 ml/min Code(s): N18.4 - CHRONIC KIDNEY DISEASE, STAGE 4 (SEVERE) Status: Chronic Plan: Considering HD but not ready, will wait to see if stone extraction improves renal function (4) Diabetes mellitus, type II, insulin dependent Code(s): E11.9 - TYPE 2 DIABETES MELLITUS WITHOUT COMPLICATIONS; Z79.4 - BREAD ROOM HAND (CURRENT) USE OF INSULIN Status: Chronic - Plan continue antibiotics, social studies department chair, out of bed/ambulate, DVT proph w/SCDs Stable currently Continue Zosyn IV Monitor renal function Hold ASA Continue Glargine 50u BID OOB/ambulate AM lab: BMP, CBC
[2019-07-12] MEDS: Rosuvastatin 10 MG TAB PO SCH (16:15)
--- NOTE | 2019-07-12 17:52 | PRG ---
DATE OF SERVICE: 07/12/2019 SUBJECTIVE: Feeling better, less pain, in fact he has not had pain since his dose of morphine on admission. Dr. Ruelas performed stent placement on left side and urethral stricture dilation. OBJECTIVE: VITAL SIGNS: Essentially normal. Slight elevation in systolic blood pressure. HEENT: Ocular movements conjugate. LUNGS: Clear. HEART: S1 and S2, regular rate. ABDOMEN: Soft, not distended. Ayala catheter removed. LABORATORY DATA: White cell count is down to 5.7, hemoglobin 8.3, and platelets 81,000. Creatinine is 5.85. Microbiology showed E coli with a broad susceptibility profile, most likely the same organism retrieved from the renal pelvis. ASSESSMENT AND DISCUSSION: Type 2 diabetes, coronary artery disease, hypertension, ischemic cardiomyopathy, and nephrolithiasis with ureteropelvic junction obstruction on left side, pyelonephritis, and end-stage renal disease, not yet on hemodialysis. The patient is status post stent placement, and we will switch him to levofloxacin and treat for another 2 weeks or longer depending on the schedule for the urological procedures down the road. Job ID: [id number] [facility]
[2019-07-13 06:10] LABS: #Eosinphils 0.3 thou/uL (0.0-0.7); #Lymphocytes 0.9 thou/uL (1.20-3.40); #Monocytes 0.4 thou/uL (0.11-0.59); #Neutrophils 3.4 thou/uL (1.40-6.50); %Basophils 0.9 % (0.0-1.0); %Eosinophils 5.1 % (0.0-10.0); %Lymphocytes 17.9 % (21.0-51.0); %Monocytes 8.3 % (0.0-10.0); %Neutrophils 67.8 % (42.0-75.0); Hemoglobin 8.3 g/dL (14.0-18.0); Mean Corpuscular HGB CONC 31.7 g/dL (32.0-36.0); Mean Corpuscular Hemoglobin 28.6 pg (27.0-31.0); Mean Corpuscular Volume 90.3 fL (78.0-98.0); Mean Platelet Volume 8.2 fL (7.4-10.4); Platelet Count 85 thou/uL (130-400); RBC Distribution Width 12.9 % (11.5-14.5); Red Blood Cell (RBC) Count 2.88 mill/uL (4.70-6.10)
[2019-07-13 06:26] LABS: Anion Gap 20 mmol/L (10-20); BUN (Urea Nitrogen) 99 mg/dL (8.4-25.7); Calc. Creatinine Clearance 20 mL/min (70-130); Calcium 8.2 mg/dL (7.8-10.44); Carbon Dioxide 18 mmol/L (23-31); Chloride 104 mmol/L (98-107); Estimated GFR-MDRD 9; Glucose 146 mg/dL (80-115); Potassium 4.3 mmol/L (3.5-5.1); Sodium 138 mmol/L (136-145)
[2019-07-13] MEDS: Insulin Glargine 50 UNITS in Pre-Filled Syringe 1 EACH SC SCH (08:30)
[2019-07-13] MEDS: Carvedilol 6.25 MG TAB PO SCH ×2 (08:31→16:51)
[2019-07-13] MEDS: Famotidine 20 MG TAB PO SCH (08:31)
[2019-07-13] MEDS: hydrALAZINE 25 MG TAB PO SCH ×2 (08:31→16:51)
[2019-07-13] MEDS: NIFEdipine XL 30 MG TAB PO SCH (08:32)
[2019-07-13] MEDS: Polyethylene Glycol 3350 17 GM Packet PO SCH (08:32)
[2019-07-13] MEDS: prednisoLONE 1% Ophth Susp 5 ml Bottle L EYE SCH ×2 (08:33→16:52)
[2019-07-13] MEDS: Torsemide 20 MG TAB PO SCH ×2 (08:34→16:50)
--- NOTE | 2019-07-13 10:44 | PRG ---
DATE OF SERVICE: 07/13/2019 SUBJECTIVE: Patient was seen and examined at bedside and overnight events noted. Patient denies any shortness of breath or chest pain or palpitation. No history of nausea or vomiting or diarrhea or fever or chills or cramps. OBJECTIVE: GENERAL: This is a well-built male, in no apparent distress. VITAL SIGNS: Temperature 97.9. Heart rate 62. Respiratory rate 18. Blood pressure 135/73. HEENT: Atraumatic, normocephalic. Oral mucosa is moist. NECK: Supple. CARDIOVASCULAR: S1, S2 heard. Rate and rhythm regular. RESPIRATORY: Clear to auscultation. GASTROINTESTINAL: Abdomen is soft. MUSCULOSKELETAL: No tenderness. No edema. DERMATOLOGIC: No skin rash. NEUROLOGIC: Alert and awake and oriented x3. No focal neurologic deficits. Moving all the extremities. PSYCHIATRIC: Mood and affect normal. LABORATORY DATA: Potassium 4.3, BUN is 99, and creatinine 6.3. ASSESSMENT AND PLAN: 1. Acute kidney injury on chronic kidney disease, stage 5. Renal function getting worse, but the patient refuses to start dialysis. He wants to wait consult on complications. 2. Chronic anemia. 3. Acidosis. 4. Edema. 5. Hypertension. The patient refused to start dialysis. We will continue close monitoring. Job ID: [id number]
[2019-07-13 12:04] VITALS: TEMP 97.6
--- NOTE | 2019-07-13 16:13 | PDOC.HOSPP ---
- Subjective Encounter Date: 07/13/19 Encounter Time: 16:00 - Objective Vital Signs & Weight: Vital Signs (12 hours) Temp Pulse Resp BP BP Pulse Ox 07/13/19 12:00 97.6 F 69 18 121/73 98 07/13/19 08:32 62 135/73 07/13/19 08:31 62 135/73 07/13/19 08:00 97.9 F 62 18 135/73 97 Weight Weight 272 lb 9.6 oz I&O: 07/12/19 07/13/19 07/14/19 06:59 06:59 06:59 Intake Total 330 450 Output Total 375 Balance -45 450 Result Diagrams: 07/13/19 05:19 07/13/19 05:19 Additional Labs: Accuchecks 07/13/19 07/13/19 07/12/19 12:05 04:37 19:56 POC Glucose 162 H 161 H 164 H 07/12/19 16:54 POC Glucose 150 H Microbiology 07/10/19 20:50 Urine voided Urine Culture - Final Escherichia coli 07/11/19 19:47 Renal Pelvis - Left Urine Culture - Preliminary Gram Negative Eddie Laboratory Tests 10/03/17 10/19/17 10/19/17 07:48 15:30 15:30 WBC Hgb Plt Count Carbon Dioxide BUN 87 H 93 H Creatinine 3.92 H 3.96 H Iron TIBC % Saturation Ferritin B-Natriuretic Peptide 448.0 H 10/19/17 10/21/17 10/21/17 15:30 05:16 05:16 WBC Hgb 8.3 L Plt Count Carbon Dioxide BUN Creatinine 4.40 H Iron 21 L 19 L TIBC 255 L % Saturation 7 L Ferritin B-Natriuretic Peptide 10/21/17 10/22/17 10/23/17 05:16 05:33 05:28 WBC Hgb Plt Count Carbon Dioxide BUN Creatinine 4.13 H 3.91 H Iron TIBC % Saturation Ferritin 131.69 B-Natriuretic Peptide 04/12/19 07/10/19 07/10/19 11:18 20:30 20:30 WBC 11.5 H Hgb 10.5 L Plt Count 120 L Carbon Dioxide BUN Creatinine Iron TIBC % Saturation Ferritin B-Natriuretic Peptide 242.0 H 583.3 H 07/11/19 07/11/19 05:38 05:38 WBC 13.6 H Hgb 8.9 L Plt Count 103 L Carbon Dioxide 21 L BUN 75 H Creatinine 5.66 H Iron TIBC % Saturation Ferritin B-Natriuretic Peptide Hospitalist ROS - Medication Medications: Active Medications Generic Name Dose Route Start Last Admin Trade Name Freq PRN Reason Stop Dose Admin Carvedilol 6.25 mg 07/11/19 08:00 07/13/19 08:31 Coreg PO 6.25 mg BID-WM ANN Administration Cholecalciferol 2,000 units 07/13/19 09:00 07/13/19 08:31 Vitamin D3 PO 2,000 units DAILY ANN Administration Famotidine 20 mg 07/11/19 09:00 07/13/19 08:31 Pepcid PO 20 mg DAILY ANN Administration Hydralazine HCl 25 mg 07/11/19 09:00 07/13/19 08:31 Apresoline PO 25 mg TID ANN Administration Insulin Glargine 50 units/ 0.5 mls @ 0 mls/hr 07/11/19 09:00 07/13/19 08:30 Miscellaneous Medication SC 0.5 mls BID [facility] Administration Insulin Human Lispro 0 units 07/10/19 23:33 07/11/19 06:15 Humalog SC 4 units .MODERATE SLIDING SC PRN Administration Moderate Correctional Scale Levofloxacin 250 mg 07/13/19 06:00 07/13/19 06:29 Levaquin PO 250 mg 0600 [facility] Administration Nifedipine 30 mg 07/11/19 09:00 07/13/19 08:32 Procardia Xl PO 30 mg DAILY ANN Administration Polyethylene Glycol 17 gm 07/11/19 09:00 07/13/19 08:32 Miralax PO Not Given DAILY [facility] Prednisolone Acetate 1 drop 07/11/19 15:00 07/13/19 08:33 Econopred Plus 1% Opth Susp L EYE 1 drop TID ANN Administration Rosuvastatin Calcium 10 mg 07/11/19 17:00 07/12/19 16:15 Crestor PO 10 mg 1700 ANN Administration Torsemide 100 mg 07/11/19 09:00 07/13/19 08:34 Demadex PO Not Given 0900,1400 ANN - Exam General Appearance: NAD, awake alert Eye: PERRL, anicteric sclera ENT: normocephalic atraumatic, no oropharyngeal lesions Hosp A/P (1) Ureterolithiasis Code(s): N20.1 - CALCULUS OF URETER Status: Acute (2) Sepsis due to gram-negative UTI Code(s): A41.50 - GRAM-NEGATIVE SEPSIS, UNSPECIFIED; N39.0 - URINARY TRACT INFECTION, SITE NOT SPECIFIED Status: Acute (3) CKD (chronic kidney disease) stage 4, GFR 15-29 ml/min Code(s): N18.4 - CHRONIC KIDNEY DISEASE, STAGE 4 (SEVERE) Status: Chronic (4) Diabetes mellitus, type II, insulin dependent Code(s): E11.9 - TYPE 2 DIABETES MELLITUS WITHOUT COMPLICATIONS; Z79.4 - FDC (CURRENT) USE OF INSULIN Status: Chronic - Plan Stable currently Continue Zosyn IV Monitor renal function Hold ASA Continue Glargine 50u BID OOB/ambulate AM lab: BMP, CBC
[2019-07-13] MEDS: Rosuvastatin 10 MG TAB PO SCH (16:51)
[2019-07-13 16:54] VITALS: BP 153/79
--- NOTE | 2019-07-14 02:49 | DIS ---
DATE OF ADMISSION: 07/10/2019 DATE OF DISCHARGE: 07/13/2019 DISCHARGE DIAGNOSES: 1. Left ureterolithiasis at the ureteropelvic junction, status post stent placement. 2. Sepsis due to Escherichia coli urinary tract infection, resolving. 3. Chronic kidney disease, stage 4 to 5. 4. Diabetes mellitus type 2, insulin dependent. 5. Anemia due to chronic kidney disease, stable. CONSULTATIONS: 1. Dr. Richy Ruelas with Urology Service. 2. Dr. Padron with Nephrology Service. 3. Dr. Adelfo Lopez with Infectious Disease Service. PERTINENT LABORATORY AND X-RAY FINDINGS: Creatinine ranged between 5.47 to 6.31. Estimated GFR ranged between 9 to 11. BNP 583. CBC showed a white blood cell count ranging between 5.0 to 13.6, hemoglobin ranged between 8.3 to 10.5. Hepatitis B and C panel negative, 07/11/2019. Urine culture dated 07/10/2019, showed greater than 100,000 colonies of E coli, pansensitive with intermediate sensitivities to ampicillin. Portable chest x-ray dated 07/10/2019 showed mild cardiomegaly and vascular prominence. CT of the abdomen and pelvis dated 07/10/2019 showed 8.7 mm stone within the left UPJ causing mild left hydronephrosis. HOSPITAL COURSE: The patient was admitted after presenting with left flank pain and hematuria. The patient underwent general evaluation including CT imaging of the abdomen and pelvis showing evidence of an 8.7 mm left UPJ stone. The patient was placed on broad-spectrum IV antibiotic therapy and given IV fluid resuscitation. The patient did meet sepsis criteria due to the stone and urinary tract infection. Urine culture did reveal E coli species at which point the patient received Zosyn 2.25 gm q.6 hours. The patient was evaluated by Urology and Infectious Disease Service with recommendations for stent placement. The patient underwent left ureteral stent placement on 07/11/2019 without complication. The patient continued with chronic kidney disease, stage 4 to 5 and monitored by the Nephrology Service. The patient was not interested in initiating hemodialysis and would like to monitor his renal function after removal of the left ureteral stone. Overall, the patient did remain clinically stable with current recommendations to transition to Levaquin 250 mg p.o. daily for 2 weeks after discharge. I have examined the patient at the time of discharge and discussed followup instructions. The patient verbalized understanding and agreement, ready for discharge on 07/13/2019. DISCHARGE MEDICATIONS: 1. Enteric-coated aspirin 81 mg p.o. daily. 2. Coreg 6.25 mg p.o. b.i.d. 3. Vitamin D3 of 50 mcg p.o. daily. 4. Pepcid 20 mg p.o. daily. 5. Glargine insulin 75 units subcutaneously b.i.d.. 6. Nifedipine extended release 30 mg p.o. daily. 7. Crestor 20 mg p.o. daily. 8. Torsemide 100 mg p.o. at bedtime. 9. Hydralazine 25 mg p.o. t.i.d. 10. Levaquin 250 mg p.o. daily x2 weeks. FOLLOWUP: The patient will follow up with his primary care provider, Dr. Lul Martínez. The patient will follow up with Dr. Leonel Tomas with Nephrology Service. The patient will follow up with Dr. Richy Ruelas with Urology Service. ACTIVITY: Ad carrillo. DIET: Renal, low-protein. CODE STATUS: Full. DISPOSITION: Home, 07/13/2019. Job ID: [id number]
--- NOTE | 2019-07-14 15:20 | EKG ---
Test Reason : Blood Pressure : / mmHG Vent. Rate : 068 BPM Atrial Rate : 068 BPM P-R Int : 176 ms QRS Dur : 098 ms QT Int : 440 ms P-R-T Axes : 026 -18 075 degrees QTc Int : 467 ms Normal sinus rhythm Inferior infarct , age undetermined Anterior infarct , age undetermined Abnormal ECG Confirmed by SACHIN HARGROVE DO ([id number]), writer editor JOSE LUIS SERVIN ([id number]) on 07/14/2019 3:20:09 PM Referred By: Confirmed By:SACHIN HARGROVE DO
[2019-07-16 07:09] LABS: Fungus Stain Final report (.)
[2019-08-10 01:08] LABS: Fungus Culture Final report (.)
== END 2019-07-13 18:11 | disposition home or self-care (01) | DRG 853 ==
LOC: ERS 19:52 → T4-B 22:01
PROVIDERS: ADMIT Internal Medicine; ATTEND Family Medicine
PROC: 0T778DZ Dilation of Left Ureter with Intraluminal Device, Via Natural or Artificial Opening Endoscopic (ICD-10-PCS; principal; 2019-07-11)
PROC: BT1F1ZZ Fluoroscopy of Left Kidney, Ureter and Bladder using Low Osmolar Contrast (ICD-10-PCS; 2019-07-11)
PROC: 0T7D8ZZ Dilation of Urethra, Via Natural or Artificial Opening Endoscopic (ICD-10-PCS; 2019-07-11)
DX: A41.51 Sepsis due to Escherichia coli [E. coli] (principal); I50.33 Acute on chronic diastolic (congestive) heart failure; N18.6 End stage renal disease; I13.2 Hypertensive heart and chronic kidney disease with heart failure and with stage 5 chronic kidney disease, or end stage renal disease; N17.9 Acute kidney failure, unspecified; E87.2 Acidosis; N13.6 Pyonephrosis; E11.22 Type 2 diabetes mellitus with diabetic chronic kidney disease; K21.9 Gastro-esophageal reflux disease without esophagitis; E78.5 Hyperlipidemia, unspecified; M10.9 Gout, unspecified; I25.10 Atherosclerotic heart disease of native coronary artery without angina pectoris; N35.919 Unspecified urethral stricture, male, unspecified site; D69.6 Thrombocytopenia, unspecified; E66.01 Morbid (severe) obesity due to excess calories; D63.1 Anemia in chronic kidney disease; I25.5 Ischemic cardiomyopathy; K80.20 Calculus of gallbladder without cholecystitis without obstruction; G47.33 Obstructive sleep apnea (adult) (pediatric); N40.1 Benign prostatic hyperplasia with lower urinary tract symptoms; N32.3 Diverticulum of bladder; R31.9 Hematuria, unspecified; Z79.4 Long term (current) use of insulin; Z95.1 Presence of aortocoronary bypass graft; Z98.42 Cataract extraction status, left eye; Z98.41 Cataract extraction status, right eye; Z87.891 Personal history of nicotine dependence; Z99.2 Dependence on renal dialysis; Z87.442 Personal history of urinary calculi
CPT/HCPCS: 36415; 36416; 71045; 74176; 74420; 80048; 80053; 81003; 81015; 82550; 83880; 85025; 86704; 86706; 86803; 87077; 87086; 87102; 87186; 87206; 87340; 93005; 93798; 96374; 96375; C1758; C1769; J0696; J1450; J1815; J2001; J2270; J2405; J2543; J2704; J3010; J3490; Q9967